=== PATIENT | female | born 1960 | race Caucasian/White ===

== ENCOUNTER 2019-03-28 20:11 | Inpatient (IN) | payer OTHER ==
[~2019-03-28] VITALS: Ht 167.6 cm; Wt 140.6 kg
[~2019-03-28 20:11] MED LIST: SULF1TAB24 PO
--- NOTE | 2019-03-28 20:18 | ED.ADGEN ---
Past History Past Medical History: Anxiety, Arthritis, Depression, GERD, Hypertension, Hypothyroid Adult General Chief Complaint Chief Complaint ".. I just feel bad... all over.. I did fall and hit my knees.. I am so depressed... Just tired... don't want to go on..." HPI HPI Patient is a 58 year old female who presents with above hx and complaints depression. Pt. presents for medical clearance to [facility]. Patient is a transfer from [facility], for admission to senior behavioral health unit. Pt. a resident of [facility] since 12-03-2018. Patient reportedly per staff at [facility] refusing to eat, states she wants to , refusing meds, disoriented, depressed, crying spells daily. No recent changes in meds. Did have an ER visit on 03/24 for suicidal ideation and received antibiotics for a UTI at that time. Patient is normally followed by Dr.Timothy Dickens in [place]. Patient has past medical history of hypothyroidism, major depressive disorder, anxiety, psychophysiological insomnia, carpal tunnel sy ndrome, hypertension, lymphedema, GERD and Nathan's esophagitis, spinal stenosis, gait disorder, chronic renal disease stage III, morbid obesity, and deconditioned. Review of Systems Review of Systems Constitutional: Denies fever or chills [] Eyes: Denies change in visual acuity, redness, or eye pain [] HENT: Denies nasal congestion or sore throat [] Respiratory: Denies cough or shortness of breath [] Cardiovascular: No additional information not addressed in [facility] [] GI: Denies abdominal pain, nausea, vomiting, bloody stools or diarrhea [] : Denies dysuria or hematuria [] Musculoskeletal: Denies back pain or joint pain []. The patient complaints of generalized weakness Integument: Denies rash or skin lesions [] Neurologic: Denies headache, focal weakness or sensory changes [] Endocrine: Denies polyuria or polydipsia [] All other systems were reviewed and found to be within normal limits, except as documented in this note. Family History Family History Noncontributory Current Medications Current Medications See nursing for home meds and allergies Allergies Allergies egg,fish, Physical Exam Physical Exam Constitutional: , no acute distress, non-toxic appearance. [] HENT: Normocephalic, atraumatic, bilateral external ears normal, oropharynx moist, no oral exudates, nose normal. [] Eyes: PERRLA, EOMI, conjunctiva normal, no discharge. [] Neck: Normal range of motion, no tenderness, supple, no stridor. More than 17 inches circumference Cardiovascular:Heart rate regular rhythm, no murmur []. PMI to the left Lungs & Thorax: Bilateral breath sounds equal apexes with some basilar crackles bilaterally on auscultation [] Abdomen: Bowel sounds normal, soft, no tenderness, no masses, no pulsatile masses. Morbid obesity Skin: Warm, dry, no erythema, venous stasis rash in ankles Back: No tenderness, no CVA tenderness. [] Extremities: No tenderness, no cyanosis, no clubbing, moves extremities on request ,edema to mid hernandez edema. [] Arthritic changes. Very weak and required assistance in transfer from wheelchair to bed Neurologic: Alert and oriented X 3, normal motor function, normal sensory function, no focal deficits noted. [] Psychologic: Affect anxious, , mood depressed. Current Patient Data Vital Signs Vital Signs Date Time Temp Pulse Resp B/P (MAP) Pulse Ox O2 Delivery O2 Flow Rate FiO2 03/28/19 20:25 97.8 88 20 97 Room Air EKG EKG My interpretation EKG shows sinus rhythm at 85 bpm. Left word axis. No findings acute STEMI of contralateral changes.[] Radiology/Procedures Radiology/[place] [address] IMAGING REPORT Signed PATIENT: YASMIN MOSQUERA ACCOUNT: [id number] : 1960 LOCATION: ER AGE: 58 SEX: F EXAM STATUS: REG ER ORD. PHYSICIAN: LISA CASH MD REASON: Fall, pelvic pain PROCEDURE: PELVIS Exam: Pelvis radiograph one view INDICATION: Fall TECHNIQUE: Frontal view of the pelvis Comparisons: None FINDINGS: There is diffuse osteopenia. No acute fractures identified. Soft tissues are unremarkable. Joint spaces are well-maintained. IMPRESSION: No acute osseous abnormality is identified. Electronically signed by: Krystin Terrazas MD (03/28/2019 10:21 PM) [facility] DICTATED AND SIGNED BY: KRYSTIN TERRAZAS MD DATE: 03/28/192220 CC: LISA CASH MD; LISA DICKENS ~ [address] [address] IMAGING REPORT Signed PATIENT: YASMIN MOSQUERA ACCOUNT: [id number] : 1960 LOCATION: ER AGE: 58 SEX: F EXAM STATUS: REG ER ORD. PHYSICIAN: LISA CASH MD REASON: Fall, bilateral knee pain PROCEDURE: KNEE BILAT 4V Exam: Bilateral knees 4 views INDICATION: Fall TECHNIQUE: Frontal, lateral and oblique views of the right and left foot. Bilateral sunrise views were also obtained. Comparisons: None FINDINGS: Left knee: Bone mineralization is normal. No acute or healed fractures. Tricompartmental osteoarthritic changes noted at the left knee. Soft tissues are unremarkable. Right knee: Bone mineralization is normal. No acute or healed fractures. Soft tissues are unremarkable. Tricompartmental osteophytic change at the right knee. IMPRESSION: 1. No acute osseous abnormality identified. 2. Tricompartmental osteoarthritic change at the kidneys bilaterally. Electronically signed by: Krystin Terrazas MD (03/28/2019 11:16 PM) [facility] DICTATED AND SIGNED BY: KRYSTIN TERRAZAS MD DATE: 03/28/192315 CC: LISA CASH MD; LISA DICKENS ~ [[address] [address] IMAGING REPORT Signed PATIENT: YASMIN MOSQUERA ACCOUNT: [id number] : 1960 LOCATION: ER AGE: 58 SEX: F EXAM STATUS: REG ER ORD. PHYSICIAN: LISA CASH MD REASON: Fall, left side chest pain PROCEDURE: CHEST AP ONLY Exam: Chest one view INDICATION: Fall TECHNIQUE: Frontal view of the chest Comparisons: None FINDINGS: The cardiomediastinal silhouette and pulmonary vessels are within normal limits. The lung and pleural spaces are clear. IMPRESSION: No acute cardiopulmonary process. Electronically signed by: Krystin Terrazas MD (03/28/2019 11:18 PM) [facility] DICTATED AND SIGNED BY: KRYSTIN TERRAZAS MD DATE: 03/28/19 1084 CC: LISA CASH MD; LISA DICKENS ~ ][place] [address] IMAGING REPORT Signed PATIENT: YASMIN MOSQUERA ACCOUNT: [id number] : 1960 LOCATION: ER AGE: 58 SEX: F EXAM STATUS: REG ER ORD. PHYSICIAN: LISA CASH MD REASON: Fall, hit left side of head, headache, neck pain PROCEDURE: CT HEAD AND CERVICAL SPINE WO Examination: CT head and cervical spine without contrast HISTORY: History of fall, hit head, neck pain COMPARISON: None available CT HEAD COMPARISON: None Available. Exposure: One or more of the following individualized dose reduction techniques were utilized for this examination: 1. Automated exposure control 2. Adjustment of the mA and/or kV according to patient size 3. Use of iterative reconstruction technique TECHNIQUE: 5 mm contiguous axial images were obtained from the skull base to the vertex in both bone and soft tissue algorithm. FINDINGS: No abnormal attenuation within the brain parenchyma. No evidence of acute intracranial hemorrhage. No extra-axial fluid collections. No mass effect or midline shift. Ventricular size is appropriate. Basal cisterns are patent. No fractures identified.Oropeza-white differentiation is preserved.Globes and orbits are within normal limits. Paranasal sinuses and mastoid air cells are clear. IMPRESSION: No acute intracranial findings. CT CERVICAL SPINE COMPARISON: None Available. Technique: 2.5 mm contiguous axial images were obtained from the skull base through the cervicothoracic junction in both bone and soft tissue algorithm. Additional sagittal and coronal reconstructions were also performed. FINDINGS: Vertebral body height and alignment are maintained. Cervical lordosis is preserved. The lateral masses of C1 are aligned upon C2. No fractures identified. The bony canal is patent throughout. Moderate intervertebral disc height loss identified in cervical spine particularly at C4-C5, C5-C6, C6-C7 vertebral levels. The bilateral facets are well aligned. The paraspinous soft tissues are unremarkable. Visualized intracranial contents are unremarkable. Lung apices are clear. IMPRESSION: 1. No acute fracture cervical spine. Correlate clinically. 2. Moderate multilevel degenerative changes cervical spine. Electronically signed by: Landon Alaniz MD (03/28/2019 10:22 PM) [facility] DICTATED AND SIGNED BY: LANDON ALANIZ MD DATE: 03/28/192221 CC: LISA CASH MD; LISA DICKENS ~ Course & Med Decision Making Course & Med Decision Making Pertinent Labs and Imaging studies reviewed. (See chart for details) Pt. admitted to Dr. Rusty ORDOÑEZ, with consult to Dr Moore for medical issues. US of legs pending at time of admit. [] Final Impression Final Impression 1. Mental Status Change[] 2. Depression 3. Suicidal Ideation 4. Elevated BUN / Creat. 23/2.5 5. Morbid Obesity 6. Elevated CK 212 7. Elevated BNP 8. Veinous Stasis 9. Elevated D-dimer 2.11 10.Falling Dragon Disclaimer Dragon Disclaimer This electronic medical record was generated, in whole or in part, using a voice recognition dictation system. Dragon Disclaimer This chart was dictated in whole or in part using Voice Recognition software in a busy, high-work load, and often noisy Emergency Department environment. It may contain unintended and wholly unrecognized errors or omissions. LISA CASH MD Mar 28, 2019 20:18
[2019-03-28] MEDS ORDERED: IV RINGERS SOLUTION,LACTATED 1,000 ML IV SCH (20:32)
--- NOTE | 2019-03-28 21:07 | EKG ---
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
[2019-03-28 21:35] LABS: BASO % 0 % (0-3); EOS % 0 % (0-3); HEMATOCRIT 44.3 % (36.0-47.0); HEMOGLOBIN 14.3 g/dL (12.0-15.5); LYMPH # 1.5 x10^3/uL (1.0-4.8); LYMPH % 16 % (24-48); MEAN CORPUSCULAR HEMOGLOBIN 27 pg (25-35); MEAN CORPUSCULAR HGB CONC 32 g/dL (31-37); MEAN CORPUSCULAR VOLUME 84 fL (79-100); MONO # 0.8 x10^3/uL (0.0-1.1); MONO % 8 % (0-9); NEUT # 7.4 x10^3uL (1.8-7.7); NEUT % 76 % (31-73); PLATELET COUNT 267 x10^3/uL (140-400); RED BLOOD COUNT 5.27 x10^6/uL (3.50-5.40); WHITE BLOOD COUNT 9.7 x10^3/uL (4.0-11.0)
[2019-03-28 21:52] LABS: VAL ACID 88 mcg/mL (50-100)
[2019-03-28] MEDS ORDERED: ACET325T21 PO (21:55)
[2019-03-28] MEDS ORDERED: GABA-586 PO (21:55)
[2019-03-28] MEDS ORDERED: LEVO88TA4 PO (21:55)
[2019-03-28] MEDS ORDERED: BENZ-8 PO (21:55)
[2019-03-28] MEDS ORDERED: CLON0.5T4 PO (21:55)
[2019-03-28] MEDS ORDERED: ARIP5TAB13 PO (21:55)
[2019-03-28] MEDS ORDERED: IPRA3AMP29 NEB (21:55)
[2019-03-28] MEDS ORDERED: GUAI-467 PO (21:55)
[2019-03-28] MEDS ORDERED: FURO40TA4 PO (21:55)
[2019-03-28] MEDS ORDERED: DIVA250T PO (21:55)
[2019-03-28] MEDS ORDERED: POTA10TA5 PO (21:55)
[2019-03-28] MEDS ORDERED: PANT40TA5 PO (21:55)
[2019-03-28] MEDS ORDERED: POLY2500 PO (21:55)
[2019-03-28 21:56] LABS: ALBUMIN 3.7 g/dL (3.4-5.0); CALCIUM 9.5 mg/dL (8.5-10.1); CREATININE 2.5 mg/dL (0.6-1.0); DIRECT BILIRUBIN 0.1 mg/dL (0.0-0.2); GFR 19.7; MAGNESIUM 2.1 mg/dL (1.8-2.4); POTASSIUM 3.9 mmol/L (3.5-5.1); TOTAL BILIRUBIN 0.4 mg/dL (0.2-1.0); TOTAL PROTEIN 8.3 g/dL (6.4-8.2)
--- NOTE | 2019-03-28 22:24 | RAD ---
Exam: Pelvis radiograph one view INDICATION: Fall TECHNIQUE: Frontal view of the pelvis Comparisons: None FINDINGS: There is diffuse osteopenia. No acute fractures identified. Soft tissues are unremarkable. Joint spaces are well-maintained. IMPRESSION: No acute osseous abnormality is identified. Electronically signed by: Krystin Nieto MD (03/28/2019 10:21 PM) [facility]
--- NOTE | 2019-03-28 22:25 | RAD ---
Examination: CT head and cervical spine without contrast HISTORY: History of fall, hit head, neck pain COMPARISON: None available CT HEAD COMPARISON: None Available. Exposure: One or more of the following individualized dose reduction techniques were utilized for this examination: 1. Automated exposure control 2. Adjustment of the mA and/or kV according to patient size 3. Use of iterative reconstruction technique TECHNIQUE: 5 mm contiguous axial images were obtained from the skull base to the vertex in both bone and soft tissue algorithm. FINDINGS: No abnormal attenuation within the brain parenchyma. No evidence of acute intracranial hemorrhage. No extra-axial fluid collections. No mass effect or midline shift. Ventricular size is appropriate. Basal cisterns are patent. No fractures identified.Oropeza-white differentiation is preserved.Globes and orbits are within normal limits. Paranasal sinuses and mastoid air cells are clear. IMPRESSION: No acute intracranial findings. CT CERVICAL SPINE COMPARISON: None Available. Technique: 2.5 mm contiguous axial images were obtained from the skull base through the cervicothoracic junction in both bone and soft tissue algorithm. Additional sagittal and coronal reconstructions were also performed. FINDINGS: Vertebral body height and alignment are maintained. Cervical lordosis is preserved. The lateral masses of C1 are aligned upon C2. No fractures identified. The bony canal is patent throughout. Moderate intervertebral disc height loss identified in cervical spine particularly at C4-C5, C5-C6, C6-C7 vertebral levels. The bilateral facets are well aligned. The paraspinous soft tissues are unremarkable. Visualized intracranial contents are unremarkable. Lung apices are clear. IMPRESSION: 1. No acute fracture cervical spine. Correlate clinically. 2. Moderate multilevel degenerative changes cervical spine. Electronically signed by: Landon Hubbard MD (03/28/2019 10:22 PM) [place] [id number]
[2019-03-28 22:47] LABS: SEDIMENTATION RATE 30 (0-25)
[2019-03-28] MEDS ORDERED: ENOXAPARIN ** NOTE DOSE ** SYRINGE SQ ONE (23:00)
[2019-03-28 23:06] LABS: BARBITURATES NEG (NEG); BENZODIAZEPINES NEG (NEG); CANNABINOIDS NEG (NEG); COCAINE NEG (NEG); METHADONE NEG (NEG); OPIATES NEG (NEG); PHENCYCLIDINE NEG (NEG)
[2019-03-28 23:09] LABS: AMPHETAMINE/METHAMPHETAMINE NEG (NEG)
[2019-03-28 23:12] LABS: BACTERIA,URINE 0 /HPF (0-FEW); BILIRUBIN,URINE NEG (NEG); CLARITY,URINE CLEAR; COLOR,URINE YELLOW; GLUCOSE,URINE NEG (NEG); NITRITE,URINE NEG (NEG); RBC,URINE 0 /HPF (0-2); SQUAMOUS EPITHELIAL CELL,UR FEW /LPF; UROBILINOGEN,URINE 0.2 mg/dL (0.2 mg/dL)
--- NOTE | 2019-03-28 23:19 | RAD ---
Exam: Bilateral knees 4 views INDICATION: Fall TECHNIQUE: Frontal, lateral and oblique views of the right and left foot. Bilateral sunrise views were also obtained. Comparisons: None FINDINGS: Left knee: Bone mineralization is normal. No acute or healed fractures. Tricompartmental osteoarthritic changes noted at the left knee. Soft tissues are unremarkable. Right knee: Bone mineralization is normal. No acute or healed fractures. Soft tissues are unremarkable. Tricompartmental osteophytic change at the right knee. IMPRESSION: 1. No acute osseous abnormality identified. 2. Tricompartmental osteoarthritic change at the kidneys bilaterally. Electronically signed by: Krystin Nieto MD (03/28/2019 11:16 PM) [facility]
--- NOTE | 2019-03-28 23:21 | RAD ---
Exam: Chest one view INDICATION: Fall TECHNIQUE: Frontal view of the chest Comparisons: None FINDINGS: The cardiomediastinal silhouette and pulmonary vessels are within normal limits. The lung and pleural spaces are clear. IMPRESSION: No acute cardiopulmonary process. Electronically signed by: Krystin Nieto MD (03/28/2019 11:18 PM) [facility]
[2019-03-29] MEDS ORDERED: METHYL SALICYLATE/MENTHOL TOPICAL OINTMENT 57GM TUBE. TP PRN
[2019-03-29] MEDS ORDERED: MAGNESIUM HYDROXIDE 2,400 MG/30 ML ORAL.SUSP. PO PRN
[2019-03-29] MEDS ORDERED: MAG HYDROX/AL HYDROX/SIMETH 30 ML ORAL.SUSP PO PRN
[2019-03-29] MEDS ORDERED: guaiFENesin 300 MG/15 ML LIQUID PO PRN (00:15)
[2019-03-29] MEDS ORDERED: ALBUTEROL SULFATE 2.5 MG/3 ML NEBU. NEB PRN ×2 (00:15→11:00)
[2019-03-29] MEDS ORDERED: BENZONATATE 100 MG CAPSULE. PO PRN (00:15)
[2019-03-29 00:53] VITALS: BP 124/98
--- NOTE | 2019-03-29 04:14 | NUR ---
Admission Note with Justification for Admission to [facility] Patient admitted to [facility] for protective oversight for emergency stabilization of acute psychiatric crisis. Pt admitted from: SNF Mode of arrival: EMS Accompanied By: EMS Precipitating behaviors that initiated intake and admission:SI(without plan), refusing to eat, wants to , refusing medication, severely depressed, crying spells daily Description of failure of out patient attempts at stabilization in previous setting list behavior and medication trials: Med changes, ER visits, ABT for UTI Behaviors and assessment findings upon admission: The patient displays a very flat affect, is compliant with her assessment and is appropriate during interactions with this nurse and other staff. The patient was cooperative when asked to rotate in bed and assist in getting dressed. The patient is currently sleeping in her room. Plan: Admit for protective oversight for adjustment and stabilization of medications, behaviors and mood. Intense treatment regimen including groups, medication adjustments, therapy, consistent regimen for ADL's, self care, and sleep hygiene. Daily monitoring by Inpatient staff, Psychiatry, and Medical Physician.
[2019-03-29 05:51] VITALS: BP 123/80
[2019-03-29] MEDS: LEVOTHYROXINE 88 MCG TABLET PO SCH (06:29)
[2019-03-29] MEDS ORDERED: IPRATRPIUM/ALBUTEROL 0.5/2.5MG 3 ML NEBU. NEB SCH (08:00)
[2019-03-29 08:11] LABS: BASO % 1 % (0-3); EOS % 0 % (0-3); HEMATOCRIT 44.9 % (36.0-47.0); HEMOGLOBIN 14.7 g/dL (12.0-15.5); LYMPH # 1.7 x10^3/uL (1.0-4.8); LYMPH % 23 % (24-48); MEAN CORPUSCULAR HEMOGLOBIN 28 pg (25-35); MEAN CORPUSCULAR HGB CONC 33 g/dL (31-37); MEAN CORPUSCULAR VOLUME 84 fL (79-100); MONO # 0.5 x10^3/uL (0.0-1.1); MONO % 7 % (0-9); NEUT # 5.1 x10^3uL (1.8-7.7); NEUT % 70 % (31-73); PLATELET COUNT 257 x10^3/uL (140-400); RED BLOOD COUNT 5.32 x10^6/uL (3.50-5.40); RED CELL DISTRIBUTION WIDTH 16.3 % (11.5-14.5); WHITE BLOOD COUNT 7.4 x10^3/uL (4.0-11.0)
[2019-03-29 08:13] LABS: CALCIUM 9.9 mg/dL (8.5-10.1); CREATININE 2.3 mg/dL (0.6-1.0); GFR 21.7; POTASSIUM 3.4 mmol/L (3.5-5.1)
[2019-03-29] MEDS ORDERED: POLYETHYLENE GLYCOL 3350 17 GM PACKET. PO PRN (09:00)
[2019-03-29] MEDS ORDERED: ASPIRIN 81 MG TAB.CHEW PO ONE (09:00)
[2019-03-29] MEDS ORDERED: ENOXAPARIN ** NOTE DOSE ** SYRINGE SQ SCH (09:00)
[2019-03-29] MEDS: clonazePAM 0.5 MG TABLET PO SCH ×2 (09:25→19:53)
[2019-03-29] MEDS: PANTOPRAZOLE 40 MG TABLET. PO SCH (09:25)
[2019-03-29] MEDS: FUROSEMIDE 40 MG TABLET PO SCH (09:26)
[2019-03-29] MEDS: POTASSIUM CHLORIDE 10 MEQ TABLET.ER. PO SCH ×2 (09:26→19:53)
[2019-03-29] MEDS: DIVALPROEX ER 250 MG TAB.ER.24H. PO SCH ×3 (09:26→19:53)
[2019-03-29] MEDS: ARIPiprazole 5 MG TABLET PO SCH (09:26)
--- NOTE | 2019-03-29 14:15 | NUR ---
NURSING NOTE: PATIENT HAS BEEN CALM AND COOPERATIVE THUS FAR THIS SHIFT. PATIENT HAS FLAT AFFECT AND JUST WANTS TO LAY IN BED ALL DAY. PATIENT WAS UP FOR BREAKFAST AND LUNCH MEAL. PATIENT DID PARTICIPATE IN DAY ROOM ACTIVITIES BETWEEN MORNING MEALS. PATIENT IS NOW IN BED AFTER DOPPLER TESTING WITH RADIOLOGY. TOOK MEDICATIONS WHOLE WITHOUT DIFFICULTIES.
--- NOTE | 2019-03-29 14:42 | NUR ---
Call placed to Yoana at [employer] ([phone]) to inform that Talia was admitted on 03/28/19 for treatment of MDD. Call reference number is Yoana Gallo 03/29/19 2:40pm. Pending authorization is [id number]. Per request, faxed intake record for review. Clinicals will need to be faxed into [phone] on 03/30/19.
[2019-03-29] MEDS ORDERED: clonazePAM 0.5 MG TABLET PO PRN (15:00)
[2019-03-29] MEDS ORDERED: ACET325T21 PO (15:01)
[2019-03-29] MEDS ORDERED: CLON0.5T4 PO (15:01)
[2019-03-29] MEDS: ACETAMINOPHEN 325 MG TABLET PO PRN (15:29)
--- NOTE | 2019-03-29 15:30 | NUR ---
SW and SW internet manager met with pt to complete PSA; in which only part of the assessment was completed. The full PSA will be added into the system once completed.
--- NOTE | 2019-03-29 15:32 | RAD ---
Bilateral lower extremity venous duplex study 03/29/2019 7:00 AM Clinical History: Lower extremity pain. Recent fall. Comparison: None Technique: Using a combination of real time ultrasound imaging and color-flow and pulse Doppler imaging techniques along with graded compression and augmentation, duplex evaluation of the deep venous system of the both lower extremities was performed. Multiple images were obtained. Findings: There is no sonographic evidence of deep venous thrombosis involving the visualized deep venous structures of either lower extremity. Bilateral popliteal cysts noted. Impression: No evidence of deep venous thrombosis involving either lower extremity Electronically signed by: Kevin Collins MD (03/29/2019 3:29 PM) [facility]
[2019-03-29 16:03] VITALS: BP 115/68
--- NOTE | 2019-03-29 18:06 | NUR ---
NURSING NOTES: PATIENT NOTED TO BE SHAKING THIS EVENING. WHEN ASKED WHAT IS CAUSING HER TO SHAKE SHE STATES SHE DOES NOT KNOW AND HAS NO CONTROL OF IT. DR. ZAKIYA ROSA.
[2019-03-29 19:07] LABS: THYROXINE 11.8 ug/dL (4.5-12.0)
[2019-03-29] MEDS: ACETAMINOPHEN 325 MG TABLET PO SCH (19:54)
[2019-03-29] MEDS: SMZ/TMP 800/160MG TABLET. PO SCH (19:54)
[2019-03-29] MEDS: GABAPENTIN 300 MG CAPSULE. PO SCH (19:54)
--- NOTE | 2019-03-29 20:36 | PDOC ---
Exam Note: Jamal Note: Please also refer to the separate dictated note~for this date of service dictated separately. Discussed the patient with Nursing staff reviewed the chart.~Reviewed interim history and current functioning. Reviewed vital signs,~Labs/ Radiology~and current medications noted below. Continue current treatment with the changes noted in the dictated addendum note Assessment: Vital Signs/I&O: Vital Signs Date Time Temp Pulse Resp B/P (MAP) Pulse Ox O2 Delivery O2 Flow Rate FiO2 03/29/19 16:03 97.0 88 16 115/68 (84) 96 03/28/19 23:33 Room Air Labs: Laboratory Tests Test 03/28/19 21:10 03/28/19 22:38 03/29/19 06:52 White Blood Count 9.7 x10^3/uL (4.0-11.0) 7.4 x10^3/uL (4.0-11.0) Red Blood Count 5.27 x10^6/uL (3.50-5.40) 5.32 x10^6/uL (3.50-5.40) Hemoglobin 14.3 g/dL (12.0-15.5) 14.7 g/dL (12.0-15.5) Hematocrit 44.3 % (36.0-47.0) 44.9 % (36.0-47.0) Mean Corpuscular Volume 84 fL (79-100) 84 fL (79-100) Mean Corpuscular Hemoglobin 27 pg (25-35) 28 pg (25-35) Mean Corpuscular Hemoglobin Concent 32 g/dL (31-37) 33 g/dL (31-37) Red Cell Distribution Width 16.0 % (11.5-14.5) H 16.3 % (11.5-14.5) H Platelet Count 267 x10^3/uL (140-400) 257 x10^3/uL (140-400) Neutrophils (%) (Auto) 76 % (31-73) H 70 % (31-73) Lymphocytes (%) (Auto) 16 % (24-48) L 23 % (24-48) L Monocytes (%) (Auto) 8 % (0-9) 7 % (0-9) Eosinophils (%) (Auto) 0 % (0-3) 0 % (0-3) Basophils (%) (Auto) 0 % (0-3) 1 % (0-3) Neutrophils # (Auto) 7.4 x10^3uL (1.8-7.7) 5.1 x10^3uL (1.8-7.7) Lymphocytes # (Auto) 1.5 x10^3/uL (1.0-4.8) 1.7 x10^3/uL (1.0-4.8) Monocytes # (Auto) 0.8 x10^3/uL (0.0-1.1) 0.5 x10^3/uL (0.0-1.1) Eosinophils # (Auto) 0.0 x10^3/uL (0.0-0.7) 0.0 x10^3/uL (0.0-0.7) Basophils # (Auto) 0.0 x10^3/uL (0.0-0.2) 0.0 x10^3/uL (0.0-0.2) Erythrocyte Sedimentation Rate 30 (0-25) H Prothrombin Time 10.8 SEC (9.4-11.4) Prothrombin Time INR 1.0 (0.9-1.1) Activated Partial Thromboplast Time 26 SEC (23-33) D-Dimer (Lupe) 2.11 mg/L (0.00-0.50) H Sodium Level 141 mmol/L (136-145) 143 mmol/L (136-145) Potassium Level 3.9 mmol/L (3.5-5.1) 3.4 mmol/L (3.5-5.1) L Chloride Level 101 mmol/L (98-107) 102 mmol/L (98-107) Carbon Dioxide Level 28 mmol/L (21-32) 27 mmol/L (21-32) Anion Gap 12 (6-14) 14 (6-14) Blood Urea Nitrogen 23 mg/dL (7-20) H 22 mg/dL (7-20) H Creatinine 2.5 mg/dL (0.6-1.0) H 2.3 mg/dL (0.6-1.0) H Estimated GFR (Cockcroft-Gault) 19.7 21.7 Glucose Level 98 mg/dL (70-99) 71 mg/dL (70-99) Calcium Level 9.5 mg/dL (8.5-10.1) 9.9 mg/dL (8.5-10.1) Magnesium Level 2.1 mg/dL (1.8-2.4) Iron Level 32 ug/dL (50-170) L Total Iron Binding Capacity 330 ug/dL (250-450) Iron Saturation 10 % (15-34) L Total Bilirubin 0.4 mg/dL (0.2-1.0) Direct Bilirubin 0.1 mg/dL (0.0-0.2) Aspartate Amino Transferase (AST) 17 U/L (15-37) Alanine Aminotransferase (ALT) 7 U/L (14-59) L Alkaline Phosphatase 83 U/L (46-116) Creatine Kinase 212 U/L (26-192) H Troponin I Quantitative < 0.017 ng/mL (0-0.055) QM-Byk-R-Type Natriuretic Peptide 473 pg/mL (0-124) H Total Protein 8.3 g/dL (6.4-8.2) H Albumin 3.7 g/dL (3.4-5.0) Triglycerides Level 149 mg/dL (0-150) Cholesterol Level 141 mg/dL (0-200) LDL Cholesterol, Calculated 75 mg/dL (0-100) VLDL Cholesterol, Calculated 29 mg/dL (0-40) Non-HDL Cholesterol Calculated 104 mg/dL (0-129) HDL Cholesterol 37 mg/dL (40-60) L Cholesterol/HDL Ratio 3.0 Lipase 102 U/L (73-393) Vitamin B12 Level 729 pg/mL (247-911) 25-Hydroxy Vitamin D Total 25.5 ng/mL (30-100) L Thyroid Stimulating Hormone (TSH) 0.142 uIU/mL (0.358-3.740) Thyroxine (T4) 11.8 ug/dL (4.5-12.0) Total Triiodothyronine (TT3) 77 ng/dL (71-180) Valproic Acid Level 88 mcg/mL (50-100) Valproic Acid Last Dose Date Unknown Valproic Acid Last Dose Time Unknown Treponema pallidum Antibody Nonreactive (Nonreactive) Urine Collection Type U cath Urine Color Yellow Urine Clarity Clear Urine pH 5.5 Urine Specific [place] 1.020 Urine Protein Neg (NEG-TRACE) Urine Glucose (UA) Neg mg/dL (NEG) Urine Ketones (Stick) Neg mg/dL (NEG) Urine Blood Neg (NEG) Urine Nitrite Neg (NEG) Urine Bilirubin Neg (NEG) Urine Urobilinogen Dipstick 0.2 mg/dL (0.2 mg/dL) Urine Leukocyte Esterase Trace (NEG) Urine RBC 0 /HPF (0-2) Urine WBC 1-4 /HPF (0-4) Urine Squamous Epithelial Cells Few /LPF Urine Transitional Epithelial Cells Many /LPF Urine Bacteria 0 /HPF (0-FEW) Urine Opiates Screen Neg (NEG) Urine Methadone Screen Neg (NEG) Urine Barbiturates Neg (NEG) Urine Phencyclidine Screen Neg (NEG) Urine Amphetamine/Methamphetamine Neg (NEG) Urine Benzodiazepines Screen Neg (NEG) Urine Cocaine Screen Neg (NEG) Urine Cannabinoids Screen Neg (NEG) Urine Ethyl Alcohol Neg (NEG) Current Medications: Meds: Current Medications Medications (Trade) Dose Ordered Sig/Radha Route PRN Reason Start Time Stop Time Status Last Admin Dose Admin Enoxaparin Sodium (Lovenox 120mg Syringe) 120 mg 1X ONCE SQ 03/28/19 23:00 03/29/19 18:27 DC 03/28/19 23:34 Enoxaparin Sodium (Lovenox 120mg Syringe) 120 mg BID SQ 03/29/19 09:00 03/29/19 18:27 DC 03/29/19 09:25 Aspirin (Children'S Aspirin) 81 mg DAILY ONCE PO 03/29/19 09:00 03/29/19 09:01 DC 03/29/19 09:26 Acetaminophen (Tylenol) 650 mg PRN Q4HRS PRN PO PAIN / TEMP 03/29/19 00:15 03/29/19 15:29 Furosemide (Lasix) 40 mg DAILY PO 03/29/19 09:00 03/29/19 09:26 Gabapentin (Neurontin) 300 mg HS PO 03/29/19 21:00 03/29/19 19:54 Levothyroxine Sodium (Synthroid) 88 mcg DAILY06 PO 03/29/19 06:00 03/29/19 06:29 Pantoprazole Sodium (Protonix) 40 mg DAILYAC PO 03/29/19 07:30 03/29/19 09:25 Potassium Chloride (Klor-Con) 10 meq BID PO 03/29/19 09:00 03/29/19 19:53 Aripiprazole (Abilify) 5 mg DAILY PO 03/29/19 09:00 03/29/19 09:26 Clonazepam (KlonoPIN) 0.5 mg BID PO 03/29/19 09:00 03/29/19 19:53 Divalproex Sodium (Depakote Er) 250 mg TID PO 03/29/19 09:00 03/29/19 19:53 Acetaminophen (Tylenol) 650 mg BID PO 03/29/19 21:00 03/29/19 19:54 Trimethoprim/ Sulfamethoxazole (Bactrim Ds) 1 tab BID PO 03/29/19 21:00 03/31/19 09:01 03/29/19 19:54 I have reviewed the current psychotropics carefully including drug interactions. Risk benefit ratio favors no change other than as noted in my dictated progress note. Diagnosis: Problems: (1) Anxiety disorder (2) Mild cognitive disorder (3) Major depressive disorder, recurrent episode (4) Impulse control disorder PAIGE CAMARA MD Mar 29, 2019 20:36
--- NOTE | 2019-03-29 23:21 | CONS ---
DATE OF CONSULTATION: REASON FOR CONSULTATION: Medical management. HISTORY OF PRESENT ILLNESS: The patient is a 58-year-old female patient, a resident at [facility], who apparently self-signed herself on account of suicidal ideation without a plan, refusing to eat, refusing medication wants to , severely depressed with daily crying spells, all this in a background of major depressive disorder. PAST MEDICAL HISTORY: Significant for hypothyroidism, carpal tunnel, hypertension, lymphedema, gastroesophageal reflux disease, Nathan's esophagus, spinal stenosis, chronic kidney disease stage 3, and morbid obesity. PAST SURGICAL HISTORY: Significant for 2 C-sections, tubal ligation. ALLERGIES: She is allergic to EGG AND FISH DERIVED PRODUCTS. MEDICATIONS: She is on sulfamethoxazole/trimethoprim 1 tablet twice a day for UTI, ipratropium bromide, albuterol sulfate by nebulizer every 4 hours, Tylenol 650 mg every 4 hours, acetaminophen 650 mg twice a day, clonazepam 0.5 mg twice a day, divalproex sodium 250 mg 3 times a day, gabapentin 300 mg at bedtime, aripiprazole or Abilify 5 mg once a day, potassium chloride 10 mEq twice a day, furosemide 40 mg daily, benzonatate 100 mg as needed every 6 hours, guaifenesin 100 mg/10 mL every 4 hours, Protonix, sodium 40 mg daily, levothyroxine sodium 88 mcg once a day, polyethylene glycol 17 grams daily. FAMILY HISTORY: Noncontributory. SOCIAL HISTORY: She apparently used to live alone, but now lives at [facility]. She has a son and a daughter. She does not smoke, drink alcohol or use any recreational drugs. REVIEW OF SYSTEMS: As in history of present illness. PHYSICAL EXAMINATION GENERAL: When I examined her, she was sitting in her wheelchair comfortably, in no apparent distress. No pallor, jaundice, cyanosis or thyromegaly. No jugular venous distension. No lower limb edema. VITAL SIGNS: Her heart rate was 88, blood pressure 115/68, temperature was 97, respiratory rate was 16, and oxygen saturation was 96%. HEAD, EYES, EARS, NOSE AND THROAT: Showed normocephalic, atraumatic. NECK: Supple. HEART: Normal first and second heart sounds. No gallop, rub or murmur. CHEST: Clear to auscultation. No crepitation or rhonchi. ABDOMEN: Distended, soft, nontender. NEUROLOGIC: She is awake, alert, responding appropriately. All cranial nerves intact. EXTREMITIES: She moves extremities without difficulty. She was in her wheelchair, but claims that she sometimes able to walk with a walker. LABORATORY DATA: Showed a white cell count 7400, hemoglobin 14.7, hematocrit 44.9, MCV 84 and platelet count 257,000. Her serum sodium was 143, potassium 3.4, chloride 102, bicarbonate 27, anion gap of 14, BUN 22, creatinine 2.3, estimated GFR was 21 mL per minute. Her glucose 71, calcium was 9.9. Her prothrombin time was 10.8, INR 1, aPTT was 26. D-dimer was 2.11. Urinalysis was essentially unremarkable and toxic screen was essentially negative. Her valproic acid is 88 mcg/mL, which is well within therapeutic range. She apparently fell and was extensively investigated in the Emergency Room, had an x-ray of her pelvis, which showed there is diffuse osteopenia, no acute fracture identified. Soft tissues unremarkable. Joint spaces are well maintained. She has bilateral knee x-rays, showed no acute osseous abnormality identified. Tricompartmental osteoarthritic changes at both knees bilaterally. CT scan of the head showed no acute intracranial finding. There is no acute fracture of cervical spine, moderate multilevel degenerative changes of cervical spine. Her chest x-ray showed the cardiomediastinal silhouette and pulmonary vessels are within normal limits and the ultrasound of both lower extremities showed no sonographic evidence of deep vein thrombosis involving the visualized deep venous structures of either lower extremity, bilateral popliteal cysts noted. ASSESSMENT AND PLAN: In summary, this is a 58-year-old female patient, who was admitted on account of suicidal ideation without a plan, refusing to eat, refusing medication, wants to , severely depressed with daily crying spells, all this in a background of major depressive disorder. She is known to have hypothyroidism, carpal tunnel, hypertension, lymphedema, gastroesophageal reflux disease, Nathan's esophagus, spinal stenosis and stage 3 kidney disease and morbid obesity. All in all, she seemed to be medically stable, I do not see any reason why she should be continued on this. The patient denied any cough or phlegm. Denied any hemoptysis. Denied any chest pain. I will probably discontinue the Lovenox as I do not think she would be able to be even in V/Q scan. Otherwise, all other lab works are stable and that showed the Bactrim would be the best option available for treating her urinary tract infection, although her urinalysis was essentially unremarkable. Thank you, Dr. Ojeda for allowing me to participate in the care of this patient. MARLENE SIGALA MD DR: DAYO/david JOB#: [id number] / [id number]
--- NOTE | 2019-03-30 00:17 | NUR ---
Nursing Note The patient was calm and cooperative with her medication and assessment. The patient took her medication whole. The patient has a very flat affect. The patient is currently sleeping in her room.
[2019-03-30] MEDS: LEVOTHYROXINE 88 MCG TABLET PO SCH (05:50)
[2019-03-30 05:56] VITALS: BP 104/62
[2019-03-30] MEDS: DIVALPROEX ER 250 MG TAB.ER.24H. PO SCH ×2 (08:33→20:15)
[2019-03-30] MEDS: ARIPiprazole 5 MG TABLET PO SCH (08:33)
[2019-03-30] MEDS: SMZ/TMP 800/160MG TABLET. PO SCH ×2 (08:33→20:15)
[2019-03-30] MEDS: POTASSIUM CHLORIDE 10 MEQ TABLET.ER. PO SCH (08:33)
[2019-03-30] MEDS: PANTOPRAZOLE 40 MG TABLET. PO SCH (08:33)
[2019-03-30] MEDS: ACETAMINOPHEN 325 MG TABLET PO SCH ×2 (08:34→20:16)
[2019-03-30] MEDS: clonazePAM 0.5 MG TABLET PO SCH ×2 (08:37→20:16)
[2019-03-30] MEDS: FUROSEMIDE 40 MG TABLET PO SCH (09:00)
--- NOTE | 2019-03-30 12:01 | PN ---
DATE: 03/30/2019 PSYCHIATRIC PROGRESS NOTE This note covers elements not covered in my initial note of 03/30. SUBJECTIVE: The patient was staffed at a treatment team meeting with the entire team and seen individually. She remains depressed, anxious, labile, has some tremors. Some of this could be contributed by the Depakote, which we will change to the bedtime. She has been having crying spells, believes she is being targeted by staff and does not like the way staff interacts with other patients on the unit. Addressed this with her. REVIEW OF SYSTEMS: Ambulation impaired. No CV, , pulmonary, eye system symptoms on review. She was in a wheelchair. MENTAL STATUS EXAM: Oriented reasonably. Speech is coherent, abstraction fair, computation impaired, language function intact, attention span short. Mood and affect still depressed, withdrawn. LABORATORY DATA: Reviewed. IMPRESSION: Major depressive disorder, recurrent, severe with possible psychotic features; anxiety disorder, unspecified; borderline personality disorder. PLAN: Continue Depakote, Abilify, Klonopin at current dosage. Start Luvox 25 mg at bedtime for 3 days, then 50 mg at bedtime thereafter for her mood, anxiety, obsessive symptoms. We will make further adjustments as clinically indicated. PAIGE CAMARA MD DR: SAM/david JOB#: [id number] / [id number]
--- NOTE | 2019-03-30 12:14 | HP ---
ADMIT DATE: 03/29/2019 This late entry 03/29 covers elements not covered in my initial note. I met with the patient at length the evening of 03/29 and discussed with Elise Molina, environment coordinator, on 03/28 and with nursing staff on 03/29. IDENTIFYING DATA: The patient is a 58-year-old female referred to us from [facility] by Dr. Rivas Dickens, her primary care physician on account of worsening symptoms of depression, feeling hopeless, helpless, worthless with suicidal ideation without a plan. She was refusing to eat, refusing medications, wanting to , severely depressed with daily crying spells. She does have a history of major depressive disorder, possible borderline personality disorder, had been functioning reasonably well until recently. CHIEF COMPLAINT: "Nothing is working out. I am depressed." HISTORY OF PRESENT ILLNESS: The patient has a history of major depressive disorder. She has been inpatient at [facility] in [place] in the past. More recently, she has been living at the assisted living, progressively deteriorating, feeling hopeless, helpless, worthless, overwhelmed with minor things having significant crying spells, sleep and appetite changes, refusing to eat, with suicidal ideation. She has appeared paranoid as well. No clear history of bipolar disorder. PAST PSYCHIATRIC HISTORY: As above. PAST MEDICAL HISTORY: Thyroid atrophy, hypothyroidism, carpal tunnel syndrome, hypertension, lymphedema, GERD, Nathan's esophagus, spinal stenosis, chronic kidney disease stage 3, obesity. Ambulates with walker/at times wheelchair, which is how she was when I met with her the evening of 03/29. CURRENT PSYCHOTROPICS: Abilify 5 mg a day, Klonopin 0.5 mg b.i.d. plus 0.5 mg b.i.d. p.r.n. anxiety. Neurontin 300 mg at bedtime, Depakote ER 250 mg t.i.d. with a level therapeutic at 88. FAMILY HISTORY: Noncontributory. SOCIAL HISTORY: No alcohol, drug abuse, physical, sexual or elder abuse history is noted. Not known to be a perpetrator. REACTION TO HOSPITALIZATION: The patient accepting of it. ASSETS: Supportive living at the facility. MENTAL STATUS EXAMINATION: The patient seen individually evening of 03/29. She is in a wheelchair, crying profusely, anxious, restless, totally overwhelmed with circumstances around her. Unable to explain to me. She states she feels "terrible." She was tearful, labile. Denies active homicidal ideation. Denies active suicidal ideation to hurt herself. Attention span short. Language function intact. IMPRESSION: Major depressive disorder ____; anxiety disorder, unspecified; borderline personality disorder; rule out bipolar disorder, depressed. Rest as above. PLAN: Admit to Geropsychiatry Unit at [facility]. I will see the patient daily individually from a psychiatric standpoint. Medical followup with Dr. Moore. Continue the patient on her current psychotropics. May change the Depakote ER to at bedtime for the entire dosage. Maintain the dosage unchanged since level is therapeutic. Continue Klonopin, gabapentin, Abilify for now. She is quite obsessive, anxious, depressed. We may start Luvox, but we will do this after another few hours of baseline assessment. We will make further decisions depending on her progress initially. Estimated length of stay 7-9 days with transition back to assisted living at discharge. MAN All CAMARA MD DR: SAM/david JOB#: [id number] / [id number]
--- NOTE | 2019-03-30 15:39 | NUR ---
CONCHITA received fax from [facility] and received approval for pt until 04/03. CONCHITA will send updates as requested for concurrent review on Wednesday.
--- NOTE | 2019-03-30 16:00 | NUR ---
PSYCHOSOCIAL ASSESSMENT ADMISSION DATE: 03/28/19 CONTACT INFORMATION: DPOA/Guardian Contact Name: Pt is a self-sign Contact Address: [address] [place] [address]; [place], [place] Contact Phone #: ETHNIC ORIGIN: REASONS FOR ADMISSION: Depressed Sig. Change Appetite Suicidal ideation Other ADDITIONAL ADMISSION COMMENTS: According to the intake, pt is having SI without a plan. Pt is refusing to eat, wants to , refusing medications, severely depressed, crying spells daily. REASON FOR ADMISSION IN PATIENT/FAMILY'S OWN WORDS: Pt has just been feeling really down lately. PATIENT/FAMILY EXPECTATIONS FOR ADMISSION: Pt wants to have her medications checked out. LIVING SITUATION: Patient lives with: Assisted Living Other living arrangements: Contact Name: Meliza Rodriguez Living Contact Address: [address] [place] [address], [place] [address] Contact Phone #: Contact Fax #: FAMILY RELATIONS: Marital Status: # of Marriages: 1 # of Children: 2 [facility] Family Support: Concerned Involved in [place] Planning Additional Comments r/t Family: Pt was to her only from [id number]. She reports that they shouldn't have but did. Together the 2 have 1 girl and 1 boy. Pt son has disowned his mother as she reports that she and her dtr are co-dependent and it is a toxic relationship. SIGNIFICANT PSYCHIATRIC/MEDICAL HISTORY: Psychiatric/Treatment History: This is pt first admission to [facility]. Pt has a hx of MDD, Borderline Personality D/O, Anxiety D/O,and insomnia. Pertinent Family History: HISTORICAL DATA: Childhood Environment: Stressful Other-see below Childhood Environment Additional Comments: Pt reports that she is 1 of 7 children. She is the baby and stated that her childhood was very stressful. Pt mainly talks to one sister who lives in [place]. Pt other siblings are spread through the states and has little to no contact with them. Psychological Abuse: None Additional Comments: Drug Abuse History last 12 months: No Comment: PERSONAL HISTORY: Vocational history: Pt reports that she worked in [employer] most of her life. Her last gig was at [employer]. service: N Taoism background: No preference. Sexual orientation: Heterosexual Educational Level: Pt graduated High School (12th grade) Past/Present Interests/Hobbies: anything that puts her around people. Financial support/resources: SS Disability Monthly income: Person handling finances: Pt finances go to her correction. Do you have a history of legal problems: N Cultural considerations: None SOCIAL RELATIONSHIPS-CURRENT/PAST: Psychiatrist: Dr. Jett (did psych eval) PCP: Rivas Dickens Counselor/Therapist: Emy Burr ([facility]) [facility]: Support Group: Pipeline Superintendent/Recruitment Coordinator: Other relationships: STRENGTHS & WEAKNESSES: Patient's strengths: Good verbal skills Approachable Other patient strengths: Patient's weaknesses: Poor family support Poor relationships Education level Other patient weaknesses: PRELIMINARY PLAN OF TREATMENT: Preliminary plan: Symp. Depression Promote Coping Skill Medication Stabilization Monitor Med Effects Other preliminary treatment comments: DISCHARGE PLANNING: Discharge planning/disposition: Current Living Arrange. Additional discharge needs identified: Pt will plan to return to [facility] ADDITIONAL INFORMATION: Other Pertinent Data: SW public relations intern and SW met with pt to complete psycho-social. Pt was in bed at requested to be re-adjusted at the beginning of the assessment. Pt reported to the SW public relations intern that she doesn't understand why nothing here works. Pt reports that she has always been depressed all of her life. Pt also reports that she does not feel staff is checking in on her or helping her as she needs it. SW explained that pt really needed to be out of her room as much as possible. SW understands that pain is an issue, but if that can be worked out, laying in bed is not okay. Pt asked to see if she could get a number for [facility]; she believes that her sister would know and asked us to call her for that number. SW will continue to follow up with pt and discuss further discharge plans.
[2019-03-30 16:40] VITALS: BP 104/68
[2019-03-30] MEDS: CHOLECALCIFEROL (VITAMIN D3) 50,000 UNIT CAPSULE PO SCH (20:15)
[2019-03-30] MEDS: POTASSIUM CHLORIDE 20 MEQ TABLET.ER. PO SCH (20:16)
[2019-03-30] MEDS: GABAPENTIN 300 MG CAPSULE. PO SCH (20:16)
--- NOTE | 2019-03-30 20:37 | PDOC ---
Exam Note: Jamal Note: Please also refer to the separate dictated note~for this date of service dictated separately.~Patient seen individually. Discussed the patient with Nursing staff reviewed the chart.~Reviewed interim history and current functioning. Reviewed vital signs,~Labs/ Radiology~and current medications noted below. Continue current treatment with the changes noted in the dictated addendum note Assessment: Vital Signs/I&O: Vital Signs Date Time Temp Pulse Resp B/P (MAP) Pulse Ox O2 Delivery O2 Flow Rate FiO2 03/30/19 16:40 97.3 67 19 104/68 (80) 97 03/30/19 05:56 Room Air I & O 03/29/19 03/29/19 03/30/19 15:00 23:00 07:00 Intake Total 600 ml 360 ml 240 ml Balance 600 ml 360 ml 240 ml Current Medications: Meds: Current Medications Medications (Trade) Dose Ordered Sig/Radha Route PRN Reason Start Time Stop Time Status Last Admin Dose Admin Gabapentin (Neurontin) 300 mg HS PO 03/29/19 21:00 03/30/19 20:16 Acetaminophen (Tylenol) 650 mg BID PO 03/29/19 21:00 03/30/19 20:16 Trimethoprim/ Sulfamethoxazole (Bactrim Ds) 1 tab BID PO 03/29/19 21:00 03/31/19 09:01 03/30/19 20:15 Divalproex Sodium (Depakote Er) 750 mg QHS PO 03/30/19 21:00 03/30/19 20:15 Potassium Chloride (Klor-Con) 20 meq BID PO 03/30/19 21:00 03/30/19 20:16 Vitamin D (Vitamin D3) 50,000 unit WEEKLY PO 03/30/19 18:30 03/30/19 20:15 I have reviewed the current psychotropics carefully including drug interactions. Risk benefit ratio favors no change other than as noted in my dictated progress note. Diagnosis: Problems: (1) Mental status change resolved (2) Anxiety disorder (3) Mild cognitive disorder (4) Major depressive disorder, recurrent episode (5) Impulse control disorder PAIGE CAMARA MD Mar 30, 2019 20:37
--- NOTE | 2019-03-30 23:19 | NUR ---
Nursing note: Assumed care of pt in the day room. She was calm and cooperative, no c/o pain, no agitation. Admits to depression but denies Si\ Addendum: 03/30/19 at 2321 by HERMAN AGEE RN denies SI plan. No hallucinations or delusions present.
[2019-03-31] MEDS: LEVOTHYROXINE 88 MCG TABLET PO SCH (06:23)
[2019-03-31 06:36] VITALS: BP 109/73
[2019-03-31] MEDS: clonazePAM 0.5 MG TABLET PO SCH ×2 (08:57→19:49)
[2019-03-31] MEDS: ARIPiprazole 5 MG TABLET PO SCH (08:58)
[2019-03-31] MEDS: SMZ/TMP 800/160MG TABLET. PO SCH (08:58)
[2019-03-31] MEDS: FUROSEMIDE 40 MG TABLET PO SCH (08:58)
[2019-03-31] MEDS: PANTOPRAZOLE 40 MG TABLET. PO SCH (08:58)
[2019-03-31] MEDS: POTASSIUM CHLORIDE 20 MEQ TABLET.ER. PO SCH ×2 (08:58→19:49)
[2019-03-31] MEDS: ACETAMINOPHEN 325 MG TABLET PO SCH ×2 (08:58→19:49)
--- NOTE | 2019-03-31 12:20 | NUR ---
CONCHITA contacted Shubham, the campus administrator at [facility] to discuss pt behaviors prior to admission. Pt came to them 3 months ago and reports that she was very happy when she came in as she was in a worse placement prior to. Shubham reports that pt did well until this last month. She was very tearful, random crying and in the moments that she had the tremors and was taken to the hospital, she was always sent back with no concerns. Shubham reports that she has a neurology appointment but it is not scheduled until the beginning of next year. CONCHITA will see if pt would be able to get a neurology consult. Shubham did report that the family dynamic is not strong. Pt is consistently attempting to give pt dtr money in which pt son is furious about and has put distance between them. Shubham also informed pt that she cannot be giving her dtr money. Once placement is paid for she only receives $70 per month.
--- NOTE | 2019-03-31 14:13 | NUR ---
Pt has had multiple episodes of tearfulness throughout the day. Pt A/O to name, ; unable to state where she is at and what the date is. Pt withdrawn; sits in the dayroom but does not participate in groups. Pt somatic and helpless, stating that she cannot propel herself in her wheelchair. Compliant with whole medications.
[2019-03-31 15:59] VITALS: BP 122/90
[2019-03-31] MEDS: DIVALPROEX ER 250 MG TAB.ER.24H. PO SCH (19:48)
[2019-03-31] MEDS: GABAPENTIN 300 MG CAPSULE. PO SCH (19:49)
--- NOTE | 2019-03-31 20:51 | PDOC ---
Exam Note: Jamal Note: Please also refer to the separate dictated note~for this date of service dictated separately.~Patient seen individually. Discussed the patient with Nursing staff reviewed the chart.~Reviewed interim history and current functioning. Reviewed vital signs,~Labs/ Radiology~and current medications noted below. Continue current treatment with the changes noted in the dictated addendum note Assessment: Vital Signs/I&O: Vital Signs Date Time Temp Pulse Resp B/P (MAP) Pulse Ox O2 Delivery O2 Flow Rate FiO2 03/31/19 15:59 97.8 76 18 122/90 (101) 87 03/30/19 05:56 Room Air I & O 03/30/19 03/30/19 03/31/19 15:00 23:00 07:00 Intake Total 960 ml 480 ml 240 ml Balance 960 ml 480 ml 240 ml Current Medications: Meds: Current Medications Medications (Trade) Dose Ordered Sig/Radha Route PRN Reason Start Time Stop Time Status Last Admin Dose Admin Divalproex Sodium (Depakote Er) 750 mg QHS PO 03/30/19 21:00 03/31/19 19:48 Fluvoxamine Maleate (Luvox) 25 mg DAILY PO 03/31/19 09:00 04/02/19 09:01 03/31/19 08:57 Potassium Chloride (Klor-Con) 20 meq BID PO 03/30/19 21:00 03/31/19 19:49 I have reviewed the current psychotropics carefully including drug interactions. Risk benefit ratio favors no change other than as noted in my dictated progress note. Diagnosis: Problems: (1) Anxiety disorder (2) Mild cognitive disorder (3) Major depressive disorder, recurrent episode (4) Impulse control disorder PAIGE CAMARA MD Mar 31, 2019 20:51
--- NOTE | 2019-03-31 22:05 | NUR ---
Nursing note: Assumed care of pt in the day room. She was A&OX3, compliant but withdrawn. Pt taken to shower and needed very little help. She had no c/o pain.
[2019-04-01 05:14] VITALS: BP 101/68
[2019-04-01] MEDS: LEVOTHYROXINE 88 MCG TABLET PO SCH (05:34)
[2019-04-01] MEDS: PANTOPRAZOLE 40 MG TABLET. PO SCH (08:27)
[2019-04-01] MEDS: FUROSEMIDE 40 MG TABLET PO SCH (08:27)
[2019-04-01] MEDS: POTASSIUM CHLORIDE 20 MEQ TABLET.ER. PO SCH ×2 (08:27→20:15)
[2019-04-01] MEDS: ACETAMINOPHEN 325 MG TABLET PO SCH ×2 (08:27→20:15)
[2019-04-01] MEDS: QUEtiapine 25 MG TABLET. PO SCH ×2 (08:29→13:17)
[2019-04-01] MEDS: clonazePAM 0.5 MG TABLET PO SCH ×2 (08:29→20:17)
--- NOTE | 2019-04-01 09:47 | NUR ---
Nursing note: Assumed care of patient in the dining room. Patient was compliant but withdrawn to self. Patient is A/Ox3. Denies SI and depression. No c/o pain, no agitation, no hallucinations.
--- NOTE | 2019-04-01 15:42 | NUR ---
Activity Therapy Assessment Completed based on observation, notes, and interview. Pt. accepted hand massages from therapist this morning. Pt. stated she is from [place] and many of her siblings live close by. Pt. stated she does not see her family or children often. When asked about interests, Pt. stated that everything she likes to do is too expensive and she doesn't have any money so she doesn't do anything. Pt. grew tired during the session and retreated to her room to sleep. Pt. uses a wheelchair to ambulate and often has a flat affect. Pt. is around groups at times and engages every so often but tends to mostly sleep. Pt. has bouts of tearfulness as well but is generally easy to calm and redirect. Pt. can express herself clearly and her memory seems fairly intact. Initial goal aimed to increase socialization and engagement: Pt. will participate in at least three Activity Therapy groups per week. Addendum: 04/06/19 at 0928 by RALPH GRAY ACT Goal changed 04/06/19: Pt. will participate in at least one Activity Therapy group per day.
[2019-04-01 15:55] VITALS: BP 133/83
[2019-04-01] MEDS: GABAPENTIN 300 MG CAPSULE. PO SCH (20:14)
[2019-04-01] MEDS: DIVALPROEX ER 250 MG TAB.ER.24H. PO SCH (20:14)
--- NOTE | 2019-04-01 20:41 | PDOC ---
Exam Note: Jamal Note: Please also refer to the separate dictated note~for this date of service dictated separately.~Patient seen individually. Discussed the patient with Nursing staff reviewed the chart.~Reviewed interim history and current functioning. Reviewed vital signs,~Labs/ Radiology~and current medications noted below. Continue current treatment with the changes noted in the dictated addendum note Assessment: Vital Signs/I&O: Vital Signs Date Time Temp Pulse Resp B/P (MAP) Pulse Ox O2 Delivery O2 Flow Rate FiO2 04/01/19 15:55 97.6 102 20 133/83 (100) 94 04/01/19 05:14 Room Air I & O 03/31/19 03/31/19 04/01/19 15:00 23:00 07:00 Intake Total 480 ml 480 ml Balance 480 ml 480 ml Current Medications: Meds: Current Medications Medications (Trade) Dose Ordered Sig/Radha Route PRN Reason Start Time Stop Time Status Last Admin Dose Admin Quetiapine Fumarate (SEROquel) 12.5 mg BID@0900,1300 PO 04/01/19 09:00 04/01/19 13:17 Clonazepam (KlonoPIN) 0.25 mg BID PO 04/01/19 21:00 04/01/19 20:17 I have reviewed the current psychotropics carefully including drug interactions. Risk benefit ratio favors no change other than as noted in my dictated progress note. Diagnosis: Problems: (1) Mental status change resolved (2) Anxiety disorder (3) Mild cognitive disorder (4) Major depressive disorder, recurrent episode (5) Impulse control disorder PAIGE CAMARA MD Apr 01, 2019 20:41
--- NOTE | 2019-04-01 22:41 | NUR ---
Nursing note: Assumed care of pt in the day room where she was sitting quietly not interacting with anyone. She was compliant with meds and wanted to go to bed. Pt has considerable redness in skin folds and under R breast. Area cleaned and nystatin powder applied. No behaviors.
[2019-04-02] MEDS: LEVOTHYROXINE 88 MCG TABLET PO SCH (05:27)
[2019-04-02] MEDS: POTASSIUM CHLORIDE 20 MEQ TABLET.ER. PO SCH ×2 (05:27→20:09)
[2019-04-02] MEDS: clonazePAM 0.5 MG TABLET PO SCH ×2 (05:27→20:08)
[2019-04-02] MEDS: PANTOPRAZOLE 40 MG TABLET. PO SCH (05:27)
[2019-04-02] MEDS: FUROSEMIDE 40 MG TABLET PO SCH (05:28)
[2019-04-02] MEDS: ACETAMINOPHEN 325 MG TABLET PO SCH ×2 (05:28→20:08)
[2019-04-02] MEDS: QUEtiapine 25 MG TABLET. PO SCH ×2 (05:28→14:22)
[2019-04-02 06:28] VITALS: BP 123/85
[2019-04-02] MEDS: buPROPion XL 150 MG TAB.ER.24H PO SCH (08:18)
[2019-04-02] MEDS: NYSTATIN TOPICAL POWDER 15GM BOTTLE. TP SCH ×2 (11:00→20:09)
[2019-04-02] MEDS: LIDOCAINE (700MG/PATCH) PATCH. TD SCH (14:21)
--- NOTE | 2019-04-02 15:34 | PN ---
DATE: 03/31/2019 PSYCHIATRIC PROGRESS NOTE This late entry 03/31/2019 covers elements not covered in my initial note. SUBJECTIVE: I met with the patient evening of 03/31/2019. Per JUAN ALBERTO Fink, the patient slept 8 hours previous night. She is alert, oriented to name, date of . UA, C and S is negative. She has been somatic, tearful, stays in a wheelchair, should be using a walker. REVIEW OF SYSTEMS: Ambulation impaired. No CV, , pulmonary, eye system symptoms on review. MENTAL STATUS EXAM: Oriented to herself and situation. Speech has some latency, coherent. Abstraction fair, computation impaired, language function intact, attention span short. Mood and affect withdrawn. LABORATORY DATA: Reviewed. IMPRESSION: Major depressive disorder with psychotic features; anxiety disorder, unspecified; mild cognitive impairment. PLAN: Change Abilify to Seroquel 12.5 mg 9 a.m., 1:00 p.m. Maintain Klonopin 0.5 b.i.d., but we will gradually taper this. Continue to gradually increase the Luvox for some of her OCD symptoms. Maintain Depakote and Neurontin for now. PAIGE CAMARA MD DR: SAM/david JOB#: [id number] / [id number]
[2019-04-02 16:07] VITALS: BP 102/68
--- NOTE | 2019-04-02 18:13 | NUR ---
Orders received for her c/o pain in calves due to her w/c. Instructed to ambulate more and get out of w/c while seated in dayroom by transferring to one of the chairs or seats. Applied lidocaine patches to the back of legs above knee level for wearing on the w/c. Pt. has not been ambulating for past two days. Has a walker and states she used it all the time prior to this adm. Consult requested from P/T to eval and treat. Also pt. reports she had compressions wraps in the past that helped, O/T consulted for lymphodema assessment. Pt. is depressed, and angry at self for being overweight. Flat affect, cooperative with all meds. Provided education on each med she is currently taking. Addendum: 04/06/19 at 1155 by CECILIA WOODWARD RN Order for lymphedema assessment cancelled-OT does not address lymphedema. PT and OT are both working with patient already. Wound care consulted for lymphedema wraps.
[2019-04-02] MEDS: GABAPENTIN 300 MG CAPSULE. PO SCH (20:08)
[2019-04-02] MEDS: DIVALPROEX ER 250 MG TAB.ER.24H. PO SCH (20:08)
[2019-04-02] MEDS: MINERAL OIL/PETROLATUM TOPICAL CREAM 113GM JAR. TP SCH (20:09)
--- NOTE | 2019-04-02 20:31 | PDOC ---
Exam Note: Jamal Note: Please also refer to the separate dictated note~for this date of service dictated separately.~Patient seen individually. Discussed the patient with Nursing staff reviewed the chart.~Reviewed interim history and current functioning. Reviewed vital signs,~Labs/ Radiology~and current medications noted below. Continue current treatment with the changes noted in the dictated addendum note Assessment: Vital Signs/I&O: Vital Signs Date Time Temp Pulse Resp B/P (MAP) Pulse Ox O2 Delivery O2 Flow Rate FiO2 04/02/19 16:07 97.9 99 18 102/68 (79) 96 04/01/19 05:14 Room Air I & O 04/01/19 04/01/19 04/02/19 15:00 23:00 07:00 Intake Total 1080 ml 240 ml Balance 1080 ml 240 ml Current Medications: Meds: Current Medications Medications (Trade) Dose Ordered Sig/Radha Route PRN Reason Start Time Stop Time Status Last Admin Dose Admin Clonazepam (KlonoPIN) 0.25 mg BID PO 04/01/19 21:00 04/02/19 20:08 Bupropion HCl (Wellbutrin Xl) 150 mg DAILY PO 04/02/19 09:00 04/02/19 08:18 Nystatin (Nystop) 1 diamond BID TP 04/02/19 11:00 04/02/19 20:09 Multi-Ingred Cream/Lotion/Oil/ Oint (Hydrocerin) 1 diamond BID TP 04/02/19 21:00 04/02/19 20:09 Lidocaine (Lidoderm) 2 patch DAILY TD 04/02/19 12:30 04/02/19 14:21 I have reviewed the current psychotropics carefully including drug interactions. Risk benefit ratio favors no change other than as noted in my dictated progress note. Diagnosis: Problems: (1) Mental status change resolved (2) Anxiety disorder (3) Mild cognitive disorder (4) Major depressive disorder, recurrent episode (5) Impulse control disorder PAIGE CAMARA MD Apr 02, 2019 20:31
[2019-04-02] MEDS: PATCH REMOVAL. MC SCH (21:54)
--- NOTE | 2019-04-02 22:00 | NUR ---
Patient up in wheelchair in day room. Compliant with medications and cooperative with cares. Eucerin cream applied to lower legs and heels at bed time. Patient appears to have lymphedema on bilateral lower legs, previous shift nurse reported that she consulted with physician. Patient denies SI when asked and states she now has a "better appetite" but admits she still feels sad. No crying spells observed this shift.
--- NOTE | 2019-04-02 23:39 | PN ---
DATE: 04/01/2019 PSYCHIATRIC PROGRESS NOTE This late entry 04/01/2019 covers elements not covered in my initial note. SUBJECTIVE: I met with the patient evening of 04/01/2019. The patient slept 5-1/2 hours previous night. The patient has been sad, depressed, somewhat helpless, somatic, tearful, not attending groups, somewhat withdrawn. She is complaining of her wheelchair, but physical therapy staff preferred to have her start ambulating gradually and do not want to give her a bigger wheelchair, which will only make her more comfortable and difficult to start ambulating since she was using a walker and ambulating independently previously. REVIEW OF SYSTEMS: Ambulation impaired. No CV, , pulmonary, eye system symptoms on review. Reliability varies. MENTAL STATUS EXAM: Oriented to herself and situation. Speech has some latency, coherent. Abstraction fair, computation impaired, language function intact, attention span short. Mood and affect remains depressed, anxious, labile. LABORATORY DATA: Reviewed. IMPRESSION: Major depressive disorder, rule out psychotic features, mild cognitive impairment. PLAN: Start Wellbutrin-XL 150 mg a day. We will taper the Klonopin from 0.5 b.i.d. to 0.25 b.i.d., maintain Seroquel 12.5 b.i.d., Depakote ER 750 at bedtime, level therapeutic at 88, Luvox increasing to 50 mg a day on 04/03/2019. Rest unchanged for now. PAIGE CAMARA MD DR: SAM/david JOB#: [id number] / [id number]
[2019-04-03] MEDS: LEVOTHYROXINE 88 MCG TABLET PO SCH (05:38)
[2019-04-03 05:45] VITALS: BP 112/55
[2019-04-03] MEDS: PANTOPRAZOLE 40 MG TABLET. PO SCH (08:13)
[2019-04-03] MEDS: POTASSIUM CHLORIDE 20 MEQ TABLET.ER. PO SCH ×2 (08:13→20:08)
[2019-04-03] MEDS: FUROSEMIDE 40 MG TABLET PO SCH (08:13)
[2019-04-03] MEDS: ACETAMINOPHEN 325 MG TABLET PO SCH ×2 (08:14→20:08)
[2019-04-03] MEDS: buPROPion XL 150 MG TAB.ER.24H PO SCH (08:14)
[2019-04-03] MEDS: MINERAL OIL/PETROLATUM TOPICAL CREAM 113GM JAR. TP SCH ×2 (08:15→20:08)
[2019-04-03] MEDS: NYSTATIN TOPICAL POWDER 15GM BOTTLE. TP SCH ×2 (08:15→20:09)
[2019-04-03] MEDS: LIDOCAINE (700MG/PATCH) PATCH. TD SCH (08:15)
[2019-04-03] MEDS: QUEtiapine 25 MG TABLET. PO SCH ×2 (08:15→12:30)
[2019-04-03] MEDS: clonazePAM 0.5 MG TABLET PO SCH ×2 (08:16→20:07)
--- NOTE | 2019-04-03 10:49 | NUR ---
Pt located in the dining room this morning. Pt calm and compliant with whole medications. Pt continues to have a flat affect, stated that she is concerned with her weight. Pt withdrawn and drowsy in the dayroom later this morning.
[2019-04-03 15:37] VITALS: BP 104/69
--- NOTE | 2019-04-03 20:06 | PDOC ---
Exam Note: Jamal Note: Please also refer to the separate dictated note~for this date of service dictated separately.~Patient seen individually. Discussed the patient with Nursing staff reviewed the chart.~Reviewed interim history and current functioning. Reviewed vital signs,~Labs/ Radiology~and current medications noted below. Continue current treatment with the changes noted in the dictated addendum note Assessment: Vital Signs/I&O: Vital Signs Date Time Temp Pulse Resp B/P (MAP) Pulse Ox O2 Delivery O2 Flow Rate FiO2 04/03/19 15:37 97.0 87 16 104/69 (81) 98 04/03/19 05:45 Room Air I & O 04/02/19 04/02/19 04/03/19 15:00 23:00 07:00 Intake Total 960 ml 480 ml 100 ml Balance 960 ml 480 ml 100 ml Current Medications: Meds: Current Medications Medications (Trade) Dose Ordered Sig/Radha Route PRN Reason Start Time Stop Time Status Last Admin Dose Admin Fluvoxamine Maleate (Luvox) 50 mg DAILY PO 04/03/19 09:00 04/03/19 08:14 Multi-Ingred Cream/Lotion/Oil/ Oint (Hydrocerin) 1 diamond BID TP 04/02/19 21:00 04/03/19 08:15 Miscellaneous (Lidoderm Patch Removal) 1 ea QHS MC 04/02/19 21:00 04/02/19 21:54 I have reviewed the current psychotropics carefully including drug interactions. Risk benefit ratio favors no change other than as noted in my dictated progress note. Diagnosis: Problems: (1) Mental status change resolved (2) Anxiety disorder (3) Mild cognitive disorder (4) Major depressive disorder, recurrent episode (5) Impulse control disorder PAIGE CAMARA MD Apr 03, 2019 20:06
[2019-04-03] MEDS: GABAPENTIN 300 MG CAPSULE. PO SCH (20:08)
[2019-04-03] MEDS: DIVALPROEX ER 250 MG TAB.ER.24H. PO SCH (20:08)
[2019-04-03] MEDS: PATCH REMOVAL. MC SCH (21:00)
--- NOTE | 2019-04-04 00:48 | PN ---
DATE: 04/02/2019 PSYCHIATRIC PROGRESS NOTE This late entry 04/02/2019 covers the elements not covered in my initial note. SUBJECTIVE: I met with the patient in the evening. Overall, the patient is doing a little better per nursing report, a little more interactive. Subjectively, she states she feels better, less depressed. REVIEW OF SYSTEMS: Ambulation impaired, in wheelchair. No CV, , pulmonary, eye system symptoms on review. MENTAL STATUS EXAM: Oriented to herself and situation. Speech has some latency, coherent. Abstraction fair, computation impaired, language function intact, attention span short. Mood and affect is still withdrawn, but better than before. LABORATORY DATA: Reviewed. IMPRESSION: Unchanged from initial note. PLAN: No change from initial note. Maintain Seroquel, Klonopin, Neurontin, Depakote, Luvox is being adjusted and Wellbutrin at current dosage. MAN All CAMARA MD DR: SAM/david JOB#: [id number] / [id number]
[2019-04-04] MEDS: LEVOTHYROXINE 88 MCG TABLET PO SCH (05:38)
[2019-04-04 06:19] VITALS: BP 98/65
[2019-04-04 07:14] LABS: BASO % 1 % (0-3); EOS % 0 % (0-3); HEMATOCRIT 43.2 % (36.0-47.0); LYMPH # 2.2 x10^3/uL (1.0-4.8); LYMPH % 34 % (24-48); MEAN CORPUSCULAR HEMOGLOBIN 28 pg (25-35); MEAN CORPUSCULAR HGB CONC 32 g/dL (31-37); MEAN CORPUSCULAR VOLUME 85 fL (79-100); MONO # 0.5 x10^3/uL (0.0-1.1); MONO % 8 % (0-9); NEUT # 3.7 x10^3uL (1.8-7.7); NEUT % 57 % (31-73); PLATELET COUNT 253 x10^3/uL (140-400); RED BLOOD COUNT 5.05 x10^6/uL (3.50-5.40); RED CELL DISTRIBUTION WIDTH 16.1 % (11.5-14.5); WHITE BLOOD COUNT 6.4 x10^3/uL (4.0-11.0)
[2019-04-04 07:34] LABS: ALBUMIN 3.2 g/dL (3.4-5.0); ALBUMIN/GLOBULIN RATIO 0.7 (1.0-1.7); CALCIUM 9.5 mg/dL (8.5-10.1); GFR 25.5; POTASSIUM 4.6 mmol/L (3.5-5.1); TOTAL BILIRUBIN 0.4 mg/dL (0.2-1.0); TOTAL PROTEIN 7.7 g/dL (6.4-8.2)
[2019-04-04] MEDS: POTASSIUM CHLORIDE 20 MEQ TABLET.ER. PO SCH ×2 (08:38→20:14)
[2019-04-04] MEDS: buPROPion XL 150 MG TAB.ER.24H PO SCH (08:38)
[2019-04-04] MEDS: PANTOPRAZOLE 40 MG TABLET. PO SCH (08:38)
[2019-04-04] MEDS: ACETAMINOPHEN 325 MG TABLET PO SCH ×2 (08:38→20:14)
[2019-04-04] MEDS: clonazePAM 0.5 MG TABLET PO SCH ×2 (08:39→20:15)
[2019-04-04] MEDS: QUEtiapine 25 MG TABLET. PO SCH ×2 (08:39→12:28)
[2019-04-04] MEDS: FUROSEMIDE 40 MG TABLET PO SCH (08:40)
[2019-04-04] MEDS: NYSTATIN TOPICAL POWDER 15GM BOTTLE. TP SCH ×2 (08:40→20:15)
[2019-04-04] MEDS: LIDOCAINE (700MG/PATCH) PATCH. TD SCH (08:41)
[2019-04-04] MEDS: MINERAL OIL/PETROLATUM TOPICAL CREAM 113GM JAR. TP SCH ×2 (11:15→20:15)
--- NOTE | 2019-04-04 14:51 | PN ---
DATE: 04/03/2019 PSYCHIATRIC PROGRESS NOTE This late entry 04/03/2019 covers elements not covered in my initial note. SUBJECTIVE: I met with the patient in the evening. Per Danae RN, patient slept 6-1/2 hours previous night. She has been somewhat drowsy, withdrawn, flat in her affect, still depressed. We will check labs morning of 04/04/2019. REVIEW OF SYSTEMS: Ambulation impaired, in wheelchair. No CV, , pulmonary, eye system symptoms on review. She was sad, tearful as I met with her. MENTAL STATUS EXAM: Oriented to herself and situation. Speech moderate latency, often responses monosyllabic. Abstraction fair, computation impaired, language function intact, attention span short. Mood and affect are withdrawn, depressed. LABORATORY DATA: Reviewed. IMPRESSION: Unchanged from initial note. PLAN: No change from initial note. Continue current psychotropics. Seroquel, Klonopin, gabapentin, Depakote, Luvox, Wellbutrin. Adjust as clinically indicated. MAN All CAMARA MD DR: SAM/david JOB#: [id number] / [id number]
[2019-04-04 16:08] VITALS: BP 110/74
--- NOTE | 2019-04-04 18:27 | NUR ---
Patient has been restless, anxious at times, attention seeking and helpless at times; she was calm, compliant, and pleasant at breakfast where she was mildly confused to place (she knew she was in a [facility] in [place]). She spent the morning in the day room, participating in groups. Patient participated in SW group after lunch then laid down for a nap. She called for help to get her up for dinner, and then was able to toilet herself and get to the dining room without assistance. Will continue to monitor and report to oncoming shift.
--- NOTE | 2019-04-04 19:52 | PDOC ---
Exam Note: Jamal Note: Please also refer to the separate dictated note~for this date of service dictated separately.~Patient seen individually. Discussed the patient with Nursing staff reviewed the chart.~Reviewed interim history and current functioning. Reviewed vital signs,~Labs/ Radiology~and current medications noted below. Continue current treatment with the changes noted in the dictated addendum note Assessment: Vital Signs/I&O: Vital Signs Date Time Temp Pulse Resp B/P (MAP) Pulse Ox O2 Delivery O2 Flow Rate FiO2 04/04/19 16:08 97.4 89 16 110/74 (86) 98 04/03/19 05:45 Room Air I & O 04/03/19 04/03/19 04/04/19 15:00 23:00 07:00 Intake Total 600 ml 240 ml 120 ml Balance 600 ml 240 ml 120 ml Labs: Laboratory Tests Test 04/04/19 06:15 White Blood Count 6.4 x10^3/uL (4.0-11.0) Red Blood Count 5.05 x10^6/uL (3.50-5.40) Hemoglobin 14.0 g/dL (12.0-15.5) Hematocrit 43.2 % (36.0-47.0) Mean Corpuscular Volume 85 fL (79-100) Mean Corpuscular Hemoglobin 28 pg (25-35) Mean Corpuscular Hemoglobin Concent 32 g/dL (31-37) Red Cell Distribution Width 16.1 % (11.5-14.5) H Platelet Count 253 x10^3/uL (140-400) Neutrophils (%) (Auto) 57 % (31-73) Lymphocytes (%) (Auto) 34 % (24-48) Monocytes (%) (Auto) 8 % (0-9) Eosinophils (%) (Auto) 0 % (0-3) Basophils (%) (Auto) 1 % (0-3) Neutrophils # (Auto) 3.7 x10^3uL (1.8-7.7) Lymphocytes # (Auto) 2.2 x10^3/uL (1.0-4.8) Monocytes # (Auto) 0.5 x10^3/uL (0.0-1.1) Eosinophils # (Auto) 0.0 x10^3/uL (0.0-0.7) Basophils # (Auto) 0.0 x10^3/uL (0.0-0.2) Sodium Level 142 mmol/L (136-145) Potassium Level 4.6 mmol/L (3.5-5.1) Chloride Level 102 mmol/L (98-107) Carbon Dioxide Level 28 mmol/L (21-32) Anion Gap 12 (6-14) Blood Urea Nitrogen 41 mg/dL (7-20) H Creatinine 2.0 mg/dL (0.6-1.0) H Estimated GFR (Cockcroft-Gault) 25.5 BUN/Creatinine Ratio 21 (6-20) H Glucose Level 72 mg/dL (70-99) Calcium Level 9.5 mg/dL (8.5-10.1) Total Bilirubin 0.4 mg/dL (0.2-1.0) Aspartate Amino Transferase (AST) 19 U/L (15-37) Alanine Aminotransferase (ALT) 11 U/L (14-59) L Alkaline Phosphatase 76 U/L (46-116) Total Protein 7.7 g/dL (6.4-8.2) Albumin 3.2 g/dL (3.4-5.0) L Albumin/Globulin Ratio 0.7 (1.0-1.7) L Current Medications: I have reviewed the current psychotropics carefully including drug interactions. Risk benefit ratio favors no change other than as noted in my dictated progress note. Diagnosis: Problems: (1) Mental status change resolved (2) Anxiety disorder (3) Mild cognitive disorder (4) Major depressive disorder, recurrent episode (5) Impulse control disorder PAIGE CAMARA MD Apr 04, 2019 19:52
[2019-04-04] MEDS: DIVALPROEX ER 250 MG TAB.ER.24H. PO SCH (20:14)
[2019-04-04] MEDS: GABAPENTIN 300 MG CAPSULE. PO SCH (20:14)
[2019-04-04] MEDS: PATCH REMOVAL. MC SCH (20:18)
--- NOTE | 2019-04-04 23:55 | NUR ---
Nursing Note Pt denies SI this pm, states she feels much better now. Pleasant and cooperative compliant with meds.
[2019-04-05] MEDS: LEVOTHYROXINE 88 MCG TABLET PO SCH (06:00)
[2019-04-05 06:08] VITALS: BP 110/71
[2019-04-05] MEDS: PANTOPRAZOLE 40 MG TABLET. PO SCH (08:47)
[2019-04-05] MEDS: QUEtiapine 25 MG TABLET. PO SCH ×2 (08:47→13:21)
[2019-04-05] MEDS: FUROSEMIDE 40 MG TABLET PO SCH (08:47)
[2019-04-05] MEDS: ACETAMINOPHEN 325 MG TABLET PO SCH ×2 (08:48→20:16)
[2019-04-05] MEDS: POTASSIUM CHLORIDE 20 MEQ TABLET.ER. PO SCH ×2 (08:48→20:16)
[2019-04-05] MEDS: clonazePAM 0.5 MG TABLET PO SCH ×2 (08:48→20:16)
[2019-04-05] MEDS: NYSTATIN TOPICAL POWDER 15GM BOTTLE. TP SCH ×2 (08:48→20:17)
[2019-04-05] MEDS: buPROPion XL 300 MG TAB.ER.24H. PO SCH (08:48)
[2019-04-05] MEDS: MINERAL OIL/PETROLATUM TOPICAL CREAM 113GM JAR. TP SCH ×2 (08:48→20:21)
[2019-04-05] MEDS: LIDOCAINE (700MG/PATCH) PATCH. TD SCH (08:49)
[2019-04-05 16:33] VITALS: BP 119/79
--- NOTE | 2019-04-05 18:11 | NUR ---
Patient has been calm, compliant, and pleasant during this shift. She spent the morning in the day room, participating in groups. Patient expressed concern about her edema, MD notified, new orders received. Will continue to monitor and report to oncoming shift.
--- NOTE | 2019-04-05 20:01 | PDOC ---
Exam Note: Jamal Note: Please also refer to the separate dictated note~for this date of service dictated separately.~Patient seen individually. Discussed the patient with Nursing staff reviewed the chart.~Reviewed interim history and current functioning. Reviewed vital signs,~Labs/ Radiology~and current medications noted below. Continue current treatment with the changes noted in the dictated addendum note Assessment: Vital Signs/I&O: Vital Signs Date Time Temp Pulse Resp B/P (MAP) Pulse Ox O2 Delivery O2 Flow Rate FiO2 04/05/19 16:33 97.5 85 16 119/79 (92) 97 04/03/19 05:45 Room Air I & O 04/04/19 04/04/19 04/05/19 15:00 23:00 07:00 Intake Total 600 ml 360 ml Balance 600 ml 360 ml Current Medications: Meds: Current Medications Medications (Trade) Dose Ordered Sig/Radha Route PRN Reason Start Time Stop Time Status Last Admin Dose Admin Bupropion HCl (Wellbutrin Xl) 300 mg DAILY PO 04/05/19 09:00 04/05/19 08:48 I have reviewed the current psychotropics carefully including drug interactions. Risk benefit ratio favors no change other than as noted in my dictated progress note. Diagnosis: Problems: (1) Mental status change resolved (2) Anxiety disorder (3) Mild cognitive disorder (4) Major depressive disorder, recurrent episode (5) Impulse control disorder PAIGE CAMARA MD Apr 05, 2019 20:01
[2019-04-05] MEDS: DIVALPROEX ER 250 MG TAB.ER.24H. PO SCH (20:17)
[2019-04-05] MEDS: GABAPENTIN 300 MG CAPSULE. PO SCH (20:17)
[2019-04-05] MEDS: PATCH REMOVAL. MC SCH (20:17)
--- NOTE | 2019-04-05 23:31 | NUR ---
Nursing Note Pt pleasant cooperative up in day room, compliant with meds. Smiles on approach, denies SI HI.
--- NOTE | 2019-04-06 01:30 | PN ---
DATE: 04/04/2019 PSYCHIATRIC PROGRESS NOTE This late entry 04/04/2019 covers elements not covered in my initial note. SUBJECTIVE: I met with the patient in the evening. Per JUAN ALBERTO De Luna, the patient slept 6-1/4 hours previous night. Previous night, she appeared helpless, withdrawn, depressed, tearful about complaining of knee pain. During the day on 04/04/2019, she did attend afternoon groups. Less isolated. REVIEW OF SYSTEMS: Ambulation impaired, in wheelchair. No CV, , pulmonary, eye system symptoms on review. Does complain of knee pain. MENTAL STATUS EXAMINATION: Oriented reasonably. Speech has some latency, coherent. Abstraction fair, computation impaired, language function intact. Mood and affect remains depressed. LABORATORY DATA: Reviewed. IMPRESSION: Unchanged from initial note. PLAN: No change from initial note. After she has been on Wellbutrin-XL 150 mg a day for 3 days, we will make it 300 mg a day. Rest unchanged from initial note. PAIGE CAMARA MD DR: SAM/david JOB#: [id number] / [id number]
[2019-04-06 06:08] VITALS: BP 113/74
[2019-04-06] MEDS: LEVOTHYROXINE 88 MCG TABLET PO SCH (06:08)
--- NOTE | 2019-04-06 08:53 | TX PLAN ---
Interdisciplinary Tx Plan Admission Information Mar 28, 2019 at 20:30 Legal Status (on Admission): Voluntary DPOA/Guardian Name: Pt is a self-sign Contact Other Contact Name: Meliza Monet Other Contact Allergies: Coded Allergies: egg (Verified Allergy, Unknown, 03/28/19) fish derived (Verified Allergy, Unknown, 03/28/19) Diagnoses Reasons for Admission: Depressed, Sig. Change Appetite, Suicidal ideation, Other Problem in Patient's Words: Pt has just been feeling really down lately. Additional Admission Comments: According to the intake, pt is having SI without a a plan. Pt is refusing to eat, wants to , refusing medications, severely depressed, crying spells daily. Problems Active Problems: Depressed feelings Withdrawn Flat affect Need for physical therapy Inactive Problems: Medication compliant Pt Strengths/Limitations Ability for [place]: Fair Cognitive Functioning/Ability: Fair Communication Skills/Ability: Fair Financial Resources: Poor Insight/Judgement: Poor Intellectual Ability: Fair Physical Health: Poor Social Skills: Fair Stability in Family: Poor Stability in School/Work: Poor Discharge Criteria Discharge Criteria: Able meet basic life need, Adequate arrangements @DC, Improved behavior, Improved mood/thought Preliminary Discharge Plan Preliminary DC Plan: Current Living Arrange. Initial D/C Plan Identified Discharge Needs: Pt will plan to return to [facility] Identified Problems/Hx/Goals Objectives/Short-Term Goals Short Term Goals: Symp. 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 Education: Pt graduated High School (12th grade) Treatment Plan Explained Patient/Admitted Attorneys had this treatment plan explained to him/her as indicated by the signature below and has been given the opportunity to ask questions and make suggestions: Date: Patient/Admitted Attorneys Signature: Team Members Signatures Team Members Psychiatrist Date Nursing Date CM/SW Date Activity Therapy Date Other Date Other Date [facility] 21, 2019 08:53
--- NOTE | 2019-04-06 08:56 | TX PLAN ---
Interdisciplinary Tx Plan Admission Information Mar 28, 2019 at 20:30 Legal Status (on Admission): Voluntary DPOA/Guardian Name: Pt is a self-sign Contact Other Contact Name: Meliza Monet Other Contact Allergies: Coded Allergies: egg (Verified Allergy, Unknown, 03/28/19) fish derived (Verified Allergy, Unknown, 03/28/19) Diagnoses Reasons for Admission: Depressed, Sig. Change Appetite, Suicidal ideation, Other Problem in Patient's Words: Pt has just been feeling really down lately. Additional Admission Comments: According to the intake, pt is having SI without a a plan. Pt is refusing to eat, wants to , refusing medications, severely depressed, crying spells daily. Problems Active Problems: Depressed feelings Withdrawn Flat affect Need for physical therapy Inactive Problems: Medication compliant Pt Strengths/Limitations Ability for [place]: Fair Cognitive Functioning/Ability: Fair Communication Skills/Ability: Fair Financial Resources: Poor Insight/Judgement: Poor Intellectual Ability: Fair Physical Health: Poor Social Skills: Fair Stability in Family: Poor Stability in School/Work: Poor Discharge Criteria Discharge Criteria: Able meet basic life need, Adequate arrangements @DC, Improved behavior, Improved mood/thought Preliminary Discharge Plan Preliminary DC Plan: Current Living Arrange. Initial D/C Plan Identified Discharge Needs: Pt will plan to return to [facility] Identified Problems/Hx/Goals Objectives/Short-Term Goals Short Term Goals: Dec. Symp. Depression, Medication Stabilization, Monitor Med Effects, Promote Coping Skill Short Term Goals in Patient's: Be less depressed Get my medications corrected Interventions/Frequency Staff Interventions/Frequency&: Psychiatrist to see pt atleast 3x per week. warp worker to see pt at least 2x per week. Nursing to complete 15 minute checks. Encourage group participation as she is withdrawn to her room often. 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 Education: Pt graduated High School (12th grade) Community Follow-up Primary care Neurology Psychiatry Counseling Treatment Plan Explained Patient/Accuracy Expert had this treatment plan explained to him/her as indicated by the signature below and has been given the opportunity to ask questions and make suggestions: Date: Patient/Accuracy Expert Signature: Patient/Accuracy Expert Decline: Yes Team Members Signatures Team Members Psychiatrist Date Nursing Date CM/SW Date Activity Therapy Date Other Date Other Date PAZ,RAMIRO Apr 06, 2019 08:55
[2019-04-06] MEDS: LIDOCAINE (700MG/PATCH) PATCH. TD SCH (08:57)
[2019-04-06] MEDS: MINERAL OIL/PETROLATUM TOPICAL CREAM 113GM JAR. TP SCH ×2 (08:57→19:51)
[2019-04-06] MEDS: FUROSEMIDE 40 MG TABLET PO SCH (08:59)
[2019-04-06] MEDS: CHOLECALCIFEROL (VITAMIN D3) 50,000 UNIT CAPSULE PO SCH (08:59)
[2019-04-06] MEDS: QUEtiapine 25 MG TABLET. PO SCH ×2 (08:59→13:44)
[2019-04-06] MEDS: NYSTATIN TOPICAL POWDER 15GM BOTTLE. TP SCH ×2 (08:59→19:51)
[2019-04-06] MEDS: PANTOPRAZOLE 40 MG TABLET. PO SCH (09:00)
[2019-04-06] MEDS: POTASSIUM CHLORIDE 20 MEQ TABLET.ER. PO SCH ×2 (09:00→19:51)
[2019-04-06] MEDS: buPROPion XL 300 MG TAB.ER.24H. PO SCH (09:00)
[2019-04-06] MEDS: clonazePAM 0.5 MG TABLET PO SCH (09:00)
[2019-04-06] MEDS: ACETAMINOPHEN 325 MG TABLET PO SCH ×2 (09:00→19:51)
--- NOTE | 2019-04-06 10:18 | NUR ---
Patient was in the dining room after breakfast for med pass. Patient calm at this time and stated that she is looking forward to having Thanksgiving dinner with her family. She also stated that she wished she still had her house, she doesn't like to live at [facility]. Patient is compliant with medications and uses walker to ambulate to and from meals. Bilateral lower edema is present, patient currently on medication for edema. Nurse encouraged patient to lay down or sit with feet and legs elevated. Patient walked to room with OT to brush her teeth and was later observed crying in the hallway. OT stated that patients mood was very labile during their session. Patient currently in the day room and is not crying at this time.
--- NOTE | 2019-04-06 10:28 | NUR ---
WEEKLY ACTIVITY THERAPY NOTE Date of Admission: 03/29/2019 Date of AT Assessment: 04/01/2019 Goal aimed: to increase socialization and engagement Initial goal: Pt. will participate in at least three Activity Therapy groups per week. Weekly progress towards goal: exceeded 8/ Group participation level: minimal to moderate Weekly highlights: giving suggestions during painting on Wednesday, named turkey, "Guillermo." Guessed many pictionary clues correctly Behaviors observed: sleeping often- even in group at times, increasing participation and smiling as week progresses, pleasant, social Plan: change goal to: Pt. will participate in at least one Activity Therapy group per day. Beneficial adaptations: positive response to trivia
--- NOTE | 2019-04-06 10:56 | NUR ---
WEEKLY NOTE: Pt is sleeping on average 6.75 and eating on average 80% of meals. Pt has minimal participation in group activities and needs encouragement to attend. Pt is somatic and has a flat affect, most conversations are negative in connotation. Pt is denying SI but is somewhat drowsy through the day. Pt Wellbutrin was increased and appears to be doing well on that. Pt is working on her gait and strength with PT an OT; ELOS is scheduled for the end of next week or beginning of the week after.
--- NOTE | 2019-04-06 11:51 | NUR ---
Spoke with PT, Maye. That department does NOT do lymphedema consults and neither does OT. Cancelled order and will pass on to Dr. Moore during rounds.
[2019-04-06 16:08] VITALS: BP 95/68
[2019-04-06] MEDS: GABAPENTIN 300 MG CAPSULE. PO SCH (19:51)
[2019-04-06] MEDS: DIVALPROEX ER 250 MG TAB.ER.24H. PO SCH (19:51)
--- NOTE | 2019-04-06 20:24 | PDOC ---
Exam Note: Jamal Note: Please also refer to the separate dictated note~for this date of service dictated separately.~Patient seen individually. Discussed the patient with Nursing staff reviewed the chart.~Reviewed interim history and current functioning. Reviewed vital signs,~Labs/ Radiology~and current medications noted below. Continue current treatment with the changes noted in the dictated addendum note Assessment: Vital Signs/I&O: Vital Signs Date Time Temp Pulse Resp B/P (MAP) Pulse Ox O2 Delivery O2 Flow Rate FiO2 04/06/19 16:08 97.9 78 18 95/68 (77) 96 04/03/19 05:45 Room Air I & O 04/05/19 04/05/19 04/06/19 15:00 23:00 07:00 Intake Total 840 ml 600 ml Balance 840 ml 600 ml Current Medications: I have reviewed the current psychotropics carefully including drug interactions. Risk benefit ratio favors no change other than as noted in my dictated progress note. Diagnosis: Problems: (1) Mental status change resolved (2) Anxiety disorder (3) Mild cognitive disorder (4) Major depressive disorder, recurrent episode (5) Impulse control disorder PAIGE CAMARA MD Apr 06, 2019 20:24
[2019-04-06] MEDS: PATCH REMOVAL. MC SCH (21:00)
[2019-04-07] MEDS: LEVOTHYROXINE 88 MCG TABLET PO SCH (05:29)
[2019-04-07 06:27] VITALS: BP 94/67
[2019-04-07] MEDS: PANTOPRAZOLE 40 MG TABLET. PO SCH (07:30)
[2019-04-07] MEDS: clonazePAM 0.5 MG TABLET PO SCH (09:00)
[2019-04-07] MEDS: buPROPion XL 300 MG TAB.ER.24H. PO SCH (09:00)
[2019-04-07] MEDS: POTASSIUM CHLORIDE 20 MEQ TABLET.ER. PO SCH ×2 (09:00→19:42)
[2019-04-07] MEDS: NYSTATIN TOPICAL POWDER 15GM BOTTLE. TP SCH ×2 (09:00→19:42)
[2019-04-07] MEDS: LIDOCAINE (700MG/PATCH) PATCH. TD SCH (09:00)
[2019-04-07] MEDS: ACETAMINOPHEN 325 MG TABLET PO SCH ×2 (09:00→19:42)
[2019-04-07] MEDS: FUROSEMIDE 40 MG TABLET PO SCH (09:00)
[2019-04-07] MEDS: MINERAL OIL/PETROLATUM TOPICAL CREAM 113GM JAR. TP SCH ×2 (09:00→21:00)
[2019-04-07] MEDS: QUEtiapine 25 MG TABLET. PO SCH ×2 (09:00→13:00)
[2019-04-07 16:29] VITALS: BP 101/69
--- NOTE | 2019-04-07 18:16 | NUR ---
Pt refused to come out for breakfast. Took am meds. Pt up for lunch and out to day room. Flat affect. Order received to increase Wellbutrin to 450mg.
--- NOTE | 2019-04-07 18:35 | NUR ---
Wound Care Wound care consult for lymphedema wrap. WC does not perform lymphedema wraps, discussed with Nikky AVENDANO and recommended size G medigrips from toes to knees, 1-2 layers, for compression. pt will need to follow up in lymphedema clinic to obtain home compression garments. WC will sign off at this time.
[2019-04-07] MEDS: GABAPENTIN 300 MG CAPSULE. PO SCH (19:41)
[2019-04-07] MEDS: DIVALPROEX ER 250 MG TAB.ER.24H. PO SCH (19:42)
[2019-04-07] MEDS: PATCH REMOVAL. MC SCH (19:43)
--- NOTE | 2019-04-07 20:40 | PDOC ---
Exam Note: Jamal Note: Please also refer to the separate dictated note~for this date of service dictated separately.~Patient seen individually. Discussed the patient with Nursing staff reviewed the chart.~Reviewed interim history and current functioning. Reviewed vital signs,~Labs/ Radiology~and current medications noted below. Continue current treatment with the changes noted in the dictated addendum note Assessment: Vital Signs/I&O: Vital Signs Date Time Temp Pulse Resp B/P (MAP) Pulse Ox O2 Delivery O2 Flow Rate FiO2 04/07/19 16:29 98.4 83 20 101/69 (80) 100 04/03/19 05:45 Room Air I & O 04/06/19 04/06/19 04/07/19 15:00 23:00 07:00 Intake Total 600 ml 600 ml Balance 600 ml 600 ml Current Medications: Meds: Current Medications Medications (Trade) Dose Ordered Sig/Radha Route PRN Reason Start Time Stop Time Status Last Admin Dose Admin Clonazepam (KlonoPIN) 0.25 mg DAILY PO 04/07/19 09:00 04/09/19 11:00 04/07/19 09:00 I have reviewed the current psychotropics carefully including drug interactions. Risk benefit ratio favors no change other than as noted in my dictated progress note. Diagnosis: Problems: (1) Mental status change resolved (2) Anxiety disorder (3) Mild cognitive disorder (4) Major depressive disorder, recurrent episode (5) Impulse control disorder PAIGE CAMARA MD Apr 07, 2019 20:40
--- NOTE | 2019-04-07 23:43 | PN ---
DATE: 04/05/2019 PSYCHIATRIC PROGRESS NOTE This late entry of 04/05/2019 covers the elements not covered in my initial note. SUBJECTIVE: I met with the patient in the evening. Per Calixto RN, the patient slept 6-3/4 hours previous night. She has been withdrawn, somewhat flat. Ambulates with a walker, attending groups. Her room was changed to 224. She has not been happy with her prior roommate. REVIEW OF SYSTEMS: Ambulation impaired, in wheelchair. No CV, , pulmonary, eye system symptoms on review. MENTAL STATUS EXAM: Oriented reasonably. Speech has some latency, coherent. Abstraction fair, computation impaired, language function intact, attention span short. Mood and affect somewhat withdrawn, less depressed. LABORATORY DATA: Reviewed. IMPRESSION: Unchanged from initial note. PLAN: No change from initial note. MAN All CAMARA MD DR: SAM/david JOB#: [id number] / [id number]
--- NOTE | 2019-04-08 03:04 | PN ---
DATE: 04/06/2019 PSYCHIATRIC PROGRESS NOTE This late entry 04/06/2019 covers elements not covered in my initial note. SUBJECTIVE: I met with the patient in the evening and staffed at a treatment team meeting with the entire team in the morning. Appetite 80%, average sleep 6-3/4 hours, somatic somewhat flat, withdrawn. No suicidal ideation. Ambulates with walker, which is an improvement from wheelchair. REVIEW OF SYSTEMS: Ambulation impaired. No CV, , pulmonary, eye system symptoms on review. MENTAL STATUS EXAM: Reasonably oriented to place and situation. Speech has some latency, coherent. Abstraction fair, computation impaired, language function intact. Mood and affect less withdrawn. LABORATORY DATA: Reviewed. IMPRESSION: Unchanged from initial note. PLAN: No change from initial note. MAN All CAMARA MD DR: SAM/david JOB#: [id number] / [id number]
[2019-04-08 06:05] VITALS: BP 96/61
[2019-04-08] MEDS: LEVOTHYROXINE 88 MCG TABLET PO SCH (06:05)
[2019-04-08] MEDS: POTASSIUM CHLORIDE 20 MEQ TABLET.ER. PO SCH ×2 (08:22→21:02)
[2019-04-08] MEDS: LIDOCAINE (700MG/PATCH) PATCH. TD SCH (08:22)
[2019-04-08] MEDS: QUEtiapine 25 MG TABLET. PO SCH ×2 (08:22→13:00)
[2019-04-08] MEDS: PANTOPRAZOLE 40 MG TABLET. PO SCH (08:23)
[2019-04-08] MEDS: ACETAMINOPHEN 325 MG TABLET PO SCH ×2 (08:23→21:02)
[2019-04-08] MEDS: FUROSEMIDE 40 MG TABLET PO SCH (08:23)
[2019-04-08] MEDS: clonazePAM 0.5 MG TABLET PO SCH (08:26)
[2019-04-08] MEDS: buPROPion XL 300 MG TAB.ER.24H. PO SCH (08:26)
[2019-04-08] MEDS: buPROPion XL 150 MG TAB.ER.24H PO SCH (08:26)
[2019-04-08] MEDS: NYSTATIN TOPICAL POWDER 15GM BOTTLE. TP SCH ×2 (08:27→21:03)
[2019-04-08] MEDS: MINERAL OIL/PETROLATUM TOPICAL CREAM 113GM JAR. TP SCH ×2 (08:27→21:03)
[2019-04-08 16:02] VITALS: BP 84/69
[2019-04-08 17:59] VITALS: BP 121/84
--- NOTE | 2019-04-08 18:25 | NUR ---
Pt up for meals and out to day room at times. Flat and depressed. Compliant with meds and cares.
--- NOTE | 2019-04-08 20:43 | PDOC ---
Exam Note: Jamal Note: Please also refer to the separate dictated note~for this date of service dictated separately.~Patient seen individually. Discussed the patient with Nursing staff reviewed the chart.~Reviewed interim history and current functioning. Reviewed vital signs,~Labs/ Radiology~and current medications noted below. Continue current treatment with the changes noted in the dictated addendum note Assessment: Vital Signs/I&O: Vital Signs Date Time Temp Pulse Resp B/P (MAP) Pulse Ox O2 Delivery O2 Flow Rate FiO2 04/08/19 17:59 102 121/84 (96) 04/08/19 16:02 97.8 16 98 04/08/19 06:05 Room Air I & O 04/07/19 04/07/19 04/08/19 15:00 23:00 07:00 Intake Total 480 ml 360 ml Balance 480 ml 360 ml Current Medications: Meds: Current Medications Medications (Trade) Dose Ordered Sig/Radha Route PRN Reason Start Time Stop Time Status Last Admin Dose Admin Bupropion HCl (Wellbutrin Xl) 300 mg DAILY PO 04/08/19 09:00 04/08/19 08:26 Bupropion HCl (Wellbutrin Xl) 150 mg DAILY PO 04/08/19 09:00 04/08/19 08:26 I have reviewed the current psychotropics carefully including drug interactions. Risk benefit ratio favors no change other than as noted in my dictated progress note. Diagnosis: Problems: (1) Mental status change resolved (2) Anxiety disorder (3) Mild cognitive disorder (4) Major depressive disorder, recurrent episode (5) Impulse control disorder PAIGE CAMARA MD Apr 08, 2019 20:43
[2019-04-08] MEDS: PATCH REMOVAL. MC SCH (21:00)
[2019-04-08] MEDS: GABAPENTIN 300 MG CAPSULE. PO SCH (21:01)
[2019-04-08] MEDS: DIVALPROEX ER 250 MG TAB.ER.24H. PO SCH (21:02)
--- NOTE | 2019-04-09 01:20 | NUR ---
Last evening pt was in day room watching TV. She seemed a bit more social and took meds whole without difficulty. No behaviors this shift.
[2019-04-09] MEDS: ACETAMINOPHEN 325 MG TABLET PO PRN (05:36)
[2019-04-09] MEDS: LEVOTHYROXINE 88 MCG TABLET PO SCH (05:36)
[2019-04-09 05:52] VITALS: BP 110/73
--- NOTE | 2019-04-09 06:34 | NUR ---
At 0330 when computer was down; pt given PRN Tylenol for knee pain. Now reports it did give her some relief.
[2019-04-09] MEDS: MINERAL OIL/PETROLATUM TOPICAL CREAM 113GM JAR. TP SCH ×2 (09:00→21:00)
[2019-04-09] MEDS: clonazePAM 0.5 MG TABLET PO SCH (09:00)
[2019-04-09] MEDS: NYSTATIN TOPICAL POWDER 15GM BOTTLE. TP SCH ×2 (09:00→21:00)
[2019-04-09] MEDS: QUEtiapine 25 MG TABLET. PO SCH ×2 (09:00→12:48)
[2019-04-09] MEDS: buPROPion XL 150 MG TAB.ER.24H PO SCH (09:05)
[2019-04-09] MEDS: PANTOPRAZOLE 40 MG TABLET. PO SCH (09:05)
[2019-04-09] MEDS: POTASSIUM CHLORIDE 20 MEQ TABLET.ER. PO SCH ×2 (09:05→21:01)
[2019-04-09] MEDS: ACETAMINOPHEN 325 MG TABLET PO SCH ×2 (09:06→21:01)
[2019-04-09] MEDS: LIDOCAINE (700MG/PATCH) PATCH. TD SCH (09:06)
[2019-04-09] MEDS: buPROPion XL 300 MG TAB.ER.24H. PO SCH (09:06)
[2019-04-09] MEDS: FUROSEMIDE 40 MG TABLET PO SCH (09:06)
[2019-04-09 15:41] VITALS: BP 106/72
--- NOTE | 2019-04-09 19:05 | NUR ---
Pt up for meals. has been compliant quiet and withdrawn.
--- NOTE | 2019-04-09 20:01 | PDOC ---
Exam Note: Jamal Note: Please also refer to the separate dictated note~for this date of service dictated separately.~Patient seen individually. Discussed the patient with Nursing staff reviewed the chart.~Reviewed interim history and current functioning. Reviewed vital signs,~Labs/ Radiology~and current medications noted below. Continue current treatment with the changes noted in the dictated addendum note Assessment: Vital Signs/I&O: Vital Signs Date Time Temp Pulse Resp B/P (MAP) Pulse Ox O2 Delivery O2 Flow Rate FiO2 04/09/19 15:41 98.8 79 14 106/72 (83) 93 04/08/19 06:05 Room Air I & O 04/08/19 04/08/19 04/09/19 15:00 23:00 07:00 Intake Total 480 ml 600 ml Balance 480 ml 600 ml Current Medications: I have reviewed the current psychotropics carefully including drug interactions. Risk benefit ratio favors no change other than as noted in my dictated progress note. Diagnosis: Problems: (1) Mental status change resolved (2) Anxiety disorder (3) Mild cognitive disorder (4) Major depressive disorder, recurrent episode (5) Impulse control disorder PAIGE CAMARA MD Apr 09, 2019 20:01
[2019-04-09] MEDS: PATCH REMOVAL. MC SCH (21:00)
[2019-04-09] MEDS: DIVALPROEX ER 250 MG TAB.ER.24H. PO SCH (21:01)
[2019-04-09] MEDS: GABAPENTIN 300 MG CAPSULE. PO SCH (21:01)
--- NOTE | 2019-04-09 21:28 | PN ---
DATE: 04/07/2019 PSYCHIATRIC PROGRESS NOTE This late entry 04/07/2019 covers elements not covered in my initial note. SUBJECTIVE: I met with the patient in the evening. Nikky Marte RN, the patient slept 6-3/4 hours previous night. More compliant with medications, ate no breakfast, was flat, withdrawn, ambulating very slowly, took 25 minutes to walk across the hallway with physical therapy staff. REVIEW OF SYSTEMS: Ambulation impaired. No CV, , pulmonary, eye, ENT system symptoms on review. MENTAL STATUS EXAMINATION: The patient is oriented to herself and situation. Speech has some latency, low in rate and rhythm, low in volume. Abstraction fair, computation impaired, language function intact. Mood and affect withdrawn. LABORATORY DATA: Reviewed. IMPRESSION: Unchanged from initial note. PLAN: Increase Wellbutrin-XL from 300 mg a day to 450 mg a day. Continue rest unchanged for now. PAIGE CAMARA MD DR: SAM/david JOB#: [id number] / [id number]
--- NOTE | 2019-04-10 01:23 | NUR ---
Nsg Note: Patient in the day room at time of medication administration and assessments. Patient was calm, compliant and cooperative. Patient was interacting with some of the other patients vaguely but is mostly withdrawn and quiet. Patient went to sleep after taking medications. No other notable behaviors.
[2019-04-10] MEDS: LEVOTHYROXINE 88 MCG TABLET PO SCH (06:00)
[2019-04-10 06:15] VITALS: BP 94/63
[2019-04-10] MEDS: LIDOCAINE (700MG/PATCH) PATCH. TD SCH (08:16)
[2019-04-10] MEDS: NYSTATIN TOPICAL POWDER 15GM BOTTLE. TP SCH ×2 (08:16→20:56)
[2019-04-10] MEDS: PANTOPRAZOLE 40 MG TABLET. PO SCH (08:16)
[2019-04-10] MEDS: POTASSIUM CHLORIDE 20 MEQ TABLET.ER. PO SCH ×2 (08:17→20:55)
[2019-04-10] MEDS: buPROPion XL 150 MG TAB.ER.24H PO SCH (08:17)
[2019-04-10] MEDS: QUEtiapine 25 MG TABLET. PO SCH ×2 (08:17→13:08)
[2019-04-10] MEDS: ACETAMINOPHEN 325 MG TABLET PO SCH ×2 (08:17→20:55)
[2019-04-10] MEDS: buPROPion XL 300 MG TAB.ER.24H. PO SCH (08:17)
[2019-04-10] MEDS: MINERAL OIL/PETROLATUM TOPICAL CREAM 113GM JAR. TP SCH ×2 (08:18→20:56)
[2019-04-10] MEDS: FUROSEMIDE 40 MG TABLET PO SCH (08:18)
--- NOTE | 2019-04-10 10:53 | TX PLAN ---
Interdisciplinary Tx Plan Admission Information Mar 28, 2019 at 20:30 Legal Status (on Admission): Voluntary DPOA/Guardian Name: Pt is a self-sign Contact Other Contact Name: Meliza Monet Other Contact Allergies: Coded Allergies: egg (Verified Allergy, Unknown, 03/28/19) fish derived (Verified Allergy, Unknown, 03/28/19) Diagnoses Reasons for Admission: Depressed, Sig. Change Appetite, Suicidal ideation, Other Problem in Patient's Words: Pt has just been feeling really down lately. Additional Admission Comments: According to the intake, pt is having SI without a a plan. Pt is refusing to eat, wants to , refusing medications, severely depressed, crying spells daily. Problems Active Problems: Depressed feelings Withdrawn Flat affect Need for physical therapy Inactive Problems: Medication compliant Pt Strengths/Limitations Ability for [place]: Fair Cognitive Functioning/Ability: Fair Communication Skills/Ability: Fair Financial Resources: Poor Insight/Judgement: Poor Intellectual Ability: Fair Physical Health: Poor Social Skills: Fair Stability in Family: Poor Stability in School/Work: Poor Discharge Criteria Discharge Criteria: Able meet basic life need, Adequate arrangements @DC, Improved behavior, Improved mood/thought Preliminary Discharge Plan Preliminary DC Plan: Current Living Arrange. Initial D/C Plan Identified Discharge Needs: Pt will plan to return to [facility] Identified Problems/Hx/Goals Objectives/Short-Term Goals Short Term Goals: Decrease Isolation, Dec. Symp. Depression, Improved Social Skills, Medication Stabilization, Monitor Med Effects, No Suicidal/Megan. ideation, Promote Coping Skill Short Term Goals in Patient's: Be less depressed Get my medications corrected Interventions/Frequency Staff Interventions/Frequency&: Psychiatrist to see pt atleast 3x per week. particleboard factory worker to see pt at least 2x per week. Nursing to complete 15 minute checks. Encourage group participation as she is withdrawn to her room often. 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 Education: Pt graduated High School (12th grade) Community Follow-up Primary care Neurology Psychiatry Counseling Treatment Plan Explained Patient/Assistant Corporation Counsel had this treatment plan explained to him/her as indicated by the signature below and has been given the opportunity to ask questions and make suggestions: Date: Patient/Assistant Corporation Counsel Signature: Additional Comments Pt has been doing well this last week. Pt continues to work with PT and OT on gait and strength training. SW will send referral for pt to continue therapy services upon discharge; in which pt will look towards discharging within the next few days. Team Members Signatures Team Members Psychiatrist Date Nursing Date CM/SW Date Activity Therapy Date Other Date Other Date PAZRAMIRO Apr 10, 2019 10:53
--- NOTE | 2019-04-10 14:37 | NUR ---
Nursing note: Pt in dining room for morning meds and assessment. Pt was compliant with taking her meds and was cooperative with her assessment. She denies depression and SI and has no complaints at this time. She is currently in the day room. Will continue to monitor.
[2019-04-10 15:56] VITALS: BP 104/81
--- NOTE | 2019-04-10 18:48 | PN ---
DATE: 04/08/2019 PSYCHIATRIC PROGRESS NOTE This late entry 04/08/2019 covers elements not covered in my initial note. SUBJECTIVE: I met with the patient in the evening. The patient slept 7-1/4 hours previous night. She has been more cooperative, less anxious, still depressed per nursing report. REVIEW OF SYSTEMS: Ambulation impaired with walker. No CV, , pulmonary, eye system symptoms on review. MENTAL STATUS EXAM: Reasonably oriented. Speech is coherent, abstraction fair, computation impaired, language function intact. Mood and affect still withdrawn, less so than before. LABORATORY DATA: Reviewed. IMPRESSION: Unchanged from initial note. PLAN: No change from initial note. MAN All CAMARA MD DR: SAM/david JOB#: [id number] / [id number]
--- NOTE | 2019-04-10 18:50 | PN ---
DATE: 04/09/2019 PSYCHIATRIC PROGRESS NOTE This late entry 04/09/2019 covers elements not covered in my initial note. SUBJECTIVE: I met with the patient in the evening. The patient slept 5-1/2 hours previous night. She remains somewhat withdrawn, less anxious, ambulating a little better, less depressed subjectively. REVIEW OF SYSTEMS: Ambulation impaired with walker. No CV, , pulmonary, eye, ENT system symptoms on review. MENTAL STATUS EXAM: Oriented reasonably. Speech moderate latency, often responses monosyllabic. Abstraction fair, computation impaired, language function intact, attention span short. Mood and affect withdrawn. LABORATORY DATA: Reviewed. IMPRESSION: Unchanged from initial note. PLAN: No change from initial note. MAN All CAMARA MD DR: SAM/david JOB#: [id number] / [id number]
--- NOTE | 2019-04-10 19:54 | PDOC ---
Exam Note: Jamal Note: Please also refer to the separate dictated note~for this date of service dictated separately.~Patient seen individually. Discussed the patient with Nursing staff reviewed the chart.~Reviewed interim history and current functioning. Reviewed vital signs,~Labs/ Radiology~and current medications noted below. Continue current treatment with the changes noted in the dictated addendum note Assessment: Vital Signs/I&O: Vital Signs Date Time Temp Pulse Resp B/P (MAP) Pulse Ox O2 Delivery O2 Flow Rate FiO2 04/10/19 15:56 98.2 82 18 104/81 (89) 97 04/10/19 06:15 Room Air I & O 04/09/19 04/09/19 04/10/19 14:59 22:59 06:59 Intake Total 360 ml 480 ml Output Total 0 ml Balance 360 ml 480 ml Current Medications: I have reviewed the current psychotropics carefully including drug interactions. Risk benefit ratio favors no change other than as noted in my dictated progress note. Diagnosis: Problems: (1) Anxiety disorder (2) Mild cognitive disorder (3) Major depressive disorder, recurrent episode (4) Impulse control disorder PAIGE CAMARA MD Apr 10, 2019 19:54
[2019-04-10] MEDS: DIVALPROEX ER 250 MG TAB.ER.24H. PO SCH (20:55)
[2019-04-10] MEDS: GABAPENTIN 300 MG CAPSULE. PO SCH (20:56)
[2019-04-10] MEDS: PATCH REMOVAL. MC SCH (20:56)
--- NOTE | 2019-04-11 00:39 | NUR ---
Nsg Note: Patient in day room at time of medication administration and assessments. Patient was calm, cooperative and compliant. Patient is flat and hypoverbal. She did mention she is having some pain in knees, tylenol administered. Patient went to sleep shortly after this interaction. No other notable behaviors at this time.
[2019-04-11] MEDS: LEVOTHYROXINE 88 MCG TABLET PO SCH (05:44)
[2019-04-11 06:27] VITALS: BP 98/60
[2019-04-11 06:47] LABS: BASO # 0.1 x10^3/uL (0.0-0.2); BASO % 1 % (0-3); EOS % 0 % (0-3); HEMATOCRIT 37.9 % (36.0-47.0); HEMOGLOBIN 12.3 g/dL (12.0-15.5); LYMPH # 1.8 x10^3/uL (1.0-4.8); LYMPH % 29 % (24-48); MEAN CORPUSCULAR HEMOGLOBIN 28 pg (25-35); MEAN CORPUSCULAR HGB CONC 32 g/dL (31-37); MEAN CORPUSCULAR VOLUME 85 fL (79-100); MONO # 0.5 x10^3/uL (0.0-1.1); MONO % 8 % (0-9); NEUT # 3.7 x10^3uL (1.8-7.7); NEUT % 62 % (31-73); PLATELET COUNT 208 x10^3/uL (140-400); RED BLOOD COUNT 4.44 x10^6/uL (3.50-5.40)
[2019-04-11 06:55] LABS: ALBUMIN 2.8 g/dL (3.4-5.0); ALBUMIN/GLOBULIN RATIO 0.8 (1.0-1.7); CALCIUM 8.7 mg/dL (8.5-10.1); CREATININE 1.8 mg/dL (0.6-1.0); GFR 28.8; POTASSIUM 3.8 mmol/L (3.5-5.1); TOTAL BILIRUBIN 0.4 mg/dL (0.2-1.0); TOTAL PROTEIN 6.4 g/dL (6.4-8.2)
[2019-04-11] MEDS: PANTOPRAZOLE 40 MG TABLET. PO SCH (07:53)
[2019-04-11] MEDS: ACETAMINOPHEN 325 MG TABLET PO SCH ×2 (07:54→20:02)
[2019-04-11] MEDS: FUROSEMIDE 40 MG TABLET PO SCH (07:54)
[2019-04-11] MEDS: POTASSIUM CHLORIDE 20 MEQ TABLET.ER. PO SCH ×2 (07:54→20:02)
[2019-04-11] MEDS: buPROPion XL 150 MG TAB.ER.24H PO SCH (07:54)
[2019-04-11] MEDS: QUEtiapine 25 MG TABLET. PO SCH ×2 (07:55→13:57)
[2019-04-11] MEDS: buPROPion XL 300 MG TAB.ER.24H. PO SCH (07:55)
[2019-04-11] MEDS: LIDOCAINE (700MG/PATCH) PATCH. TD SCH (07:56)
[2019-04-11] MEDS: MINERAL OIL/PETROLATUM TOPICAL CREAM 113GM JAR. TP SCH ×2 (07:56→20:03)
[2019-04-11] MEDS: NYSTATIN TOPICAL POWDER 15GM BOTTLE. TP SCH ×2 (07:56→20:03)
--- NOTE | 2019-04-11 11:17 | NUR ---
Nursing note: Pt was in dining room for morning meds and assessment. Pt was compliant with taking her meds and was interactive with her assessment. She c/o pain in her knees, lidocaine patches were administered to both knees. Pt has been in the day room for most of the morning, but has been withdrawn to herself. Will continue to monitor.
--- NOTE | 2019-04-11 12:16 | NUR ---
WEEKLY ACTIVITY THERAPY NOTE- Based on four days of programming Date of Admission: 03/29/2019 Date of AT Assessment: 04/01/2019 Goal aimed: to increase socialization and engagement Initial goal: Pt. will participate in at least three Activity Therapy groups per week. Goal changed 04/06/19: Pt. will participate in at least one Activity Therapy group per day. Weekly progress towards goal: achieved Group participation level: full Weekly highlights: fully participated in all groups offered this week Behaviors observed: more alert this week, smiling often, generally keeps to self but around peers in day room Plan: no change to goal Beneficial adaptations: positive response to trivia
--- NOTE | 2019-04-11 15:14 | NUR ---
[facility] Social Work Discharge Planning Form Patient Name YASMIN MOSQUERA Admit Date: 03/28/19 DISCHARGE PLAN Discharge Destination: Back to [facility] Care Assessment: N/A Level II Assessment: N/A Transportation: Special Instructions/Notes: Please fax all discharge orders and the medication list to the facility fax number listed below. DISCHARGE TO FACILITY Facility: [facility] Address: [address] [place] [address] Contact Name: DanielaDEVON: Contact Name: Please ask to speak to the nurse receiving pt upon admission: PCP: Rivas Dickens
[2019-04-11] MEDS ORDERED: CHOL500050 PO (15:24)
[2019-04-11] MEDS ORDERED: LIDO700A21 TP (15:25)
[2019-04-11] MEDS ORDERED: MAG-95 PO (15:26)
[2019-04-11] MEDS ORDERED: MAGN2400 PO (15:27)
[2019-04-11] MEDS ORDERED: METH28OI2 TP (15:28)
[2019-04-11] MEDS ORDERED: QUET25TA5 PO (15:30)
[2019-04-11] MEDS ORDERED: BUPR300T4 PO (15:31)
[2019-04-11] MEDS ORDERED: FLUV50TA2 PO (15:32)
[2019-04-11 16:11] VITALS: BP 150/77
--- NOTE | 2019-04-11 19:12 | DS ---
DATE OF DISCHARGE: 04/11/2019 DISCHARGE SUMMARY/PSYCHIATRIC PROGRESS NOTE This note covers the elements not covered in my initial note. REASON FOR ADMISSION: Please refer to the admission history for details. Briefly, the patient is a 58-year-old female referred to us from [facility] assisted living facility by her primary care physician on account of worsening symptoms of depression, suicidal ideation without a plan. She was refusing to eat, refusing medications, wanting to , severely depressed with daily crying spells. She had failed outpatient psychiatric interventions, referred for inpatient psychiatric stabilization due to risk for harm to herself. SIGNIFICANT FINDINGS AND CLINICAL COURSE: Following admission, the patient was seen daily individually by myself from a psychiatric standpoint, medical followup with Dr. Moore. The patient was extremely depressed, withdrawn with persistent frequent non-relenting crying spells. Adjustments were made in her psychotropic. She seemed to respond to a combination of Seroquel 12.5 mg b.i.d., Klonopin, which was being tapered. Gabapentin 300 mg at bedtime, Depakote ER 750 mg at bedtime with a level therapeutic at 88, Luvox 50 mg a day, Wellbutrin-XL 450 mg a day. Prior to discharge 04/11/2019, ambulation impaired with walker, though generally she was walking much better than a few days earlier when she put herself in the wheelchair. REVIEW OF SYSTEMS: No CV, , pulmonary, eye system symptoms on review. MENTAL STATUS EXAM: Reasonably oriented to herself and situation. Speech has some latency, coherent, more forthcoming, abstraction fair, computation impaired, language function intact. Mood and affect improved. No suicidal ideation. DISCHARGE CONDITION AT DISCHARGE: Improved. FINAL DIAGNOSES: Major depressive disorder, recurrent with psychotic features, in partial remission; anxiety disorder, unspecified; mild cognitive impairment; obsessive-compulsive disorder. Rest unchanged from admission. DISCHARGE MEDICATIONS: Please refer to the MRAD. DISCHARGE INSTRUCTIONS: Outpatient psychiatric and medical followup at the long-term. Time for discharge day management greater than 30 minutes. MAN All CAMARA MD DR: SAM/david JOB#: [id number] / [id number]
--- NOTE | 2019-04-11 19:57 | PDOC ---
Exam Note: Jamal Note: Please also refer to the separate dictated note~for this date of service dictated separately.~Patient seen individually. Discussed the patient with Nursing staff reviewed the chart.~Reviewed interim history and current functioning. Reviewed vital signs,~Labs/ Radiology~and current medications noted below. Continue current treatment with the changes noted in the dictated addendum note Assessment: Vital Signs/I&O: Vital Signs Date Time Temp Pulse Resp B/P (MAP) Pulse Ox O2 Delivery O2 Flow Rate FiO2 04/11/19 16:11 97.9 89 20 150/77 (101) 98 Room Air I & O 04/10/19 04/10/19 04/11/19 15:00 23:00 07:00 Intake Total 720 ml 240 ml 120 ml Balance 720 ml 240 ml 120 ml Labs: Laboratory Tests Test 04/11/19 06:35 White Blood Count 6.0 x10^3/uL (4.0-11.0) Red Blood Count 4.44 x10^6/uL (3.50-5.40) Hemoglobin 12.3 g/dL (12.0-15.5) Hematocrit 37.9 % (36.0-47.0) Mean Corpuscular Volume 85 fL (79-100) Mean Corpuscular Hemoglobin 28 pg (25-35) Mean Corpuscular Hemoglobin Concent 32 g/dL (31-37) Red Cell Distribution Width 16.0 % (11.5-14.5) H Platelet Count 208 x10^3/uL (140-400) Neutrophils (%) (Auto) 62 % (31-73) Lymphocytes (%) (Auto) 29 % (24-48) Monocytes (%) (Auto) 8 % (0-9) Eosinophils (%) (Auto) 0 % (0-3) Basophils (%) (Auto) 1 % (0-3) Neutrophils # (Auto) 3.7 x10^3uL (1.8-7.7) Lymphocytes # (Auto) 1.8 x10^3/uL (1.0-4.8) Monocytes # (Auto) 0.5 x10^3/uL (0.0-1.1) Eosinophils # (Auto) 0.0 x10^3/uL (0.0-0.7) Basophils # (Auto) 0.1 x10^3/uL (0.0-0.2) Sodium Level 145 mmol/L (136-145) Potassium Level 3.8 mmol/L (3.5-5.1) Chloride Level 107 mmol/L (98-107) Carbon Dioxide Level 29 mmol/L (21-32) Anion Gap 9 (6-14) Blood Urea Nitrogen 34 mg/dL (7-20) H Creatinine 1.8 mg/dL (0.6-1.0) H Estimated GFR (Cockcroft-Gault) 28.8 BUN/Creatinine Ratio 19 (6-20) Glucose Level 79 mg/dL (70-99) Calcium Level 8.7 mg/dL (8.5-10.1) Total Bilirubin 0.4 mg/dL (0.2-1.0) Aspartate Amino Transferase (AST) 11 U/L (15-37) L Alanine Aminotransferase (ALT) 11 U/L (14-59) L Alkaline Phosphatase 69 U/L (46-116) Total Protein 6.4 g/dL (6.4-8.2) Albumin 2.8 g/dL (3.4-5.0) L Albumin/Globulin Ratio 0.8 (1.0-1.7) L Current Medications: I have reviewed the current psychotropics carefully including drug interactions. Risk benefit ratio favors no change other than as noted in my dictated progress note. Diagnosis: Problems: (1) Anxiety disorder (2) Mild cognitive disorder (3) Major depressive disorder, recurrent episode (4) Impulse control disorder PAIEG CAMARA MD Apr 11, 2019 19:57
[2019-04-11] MEDS: GABAPENTIN 300 MG CAPSULE. PO SCH (20:01)
[2019-04-11] MEDS: DIVALPROEX ER 250 MG TAB.ER.24H. PO SCH (20:02)
[2019-04-11] MEDS: PATCH REMOVAL. MC SCH (20:02)
--- NOTE | 2019-04-11 23:33 | NUR ---
Nsg Note: Patient was in day room at time of medication administration and assessments. Patient was calm, compliant, cooperative, flat and denies SI. Patient went off to bed shortly after this interaction. No other notable behaviors at this time.
--- NOTE | 2019-04-11 23:50 | PN ---
DATE: 04/10/2019 PSYCHIATRIC PROGRESS NOTE This late entry 04/10/2019 covers the elements not covered in my initial note. SUBJECTIVE: I met with the patient in the evening. Per report from JUAN ALBERTO Alexander, the patient slept 6-3/4 hours previous night. She has been flat, withdrawn, compliant with medications, a little more interactive with peers. REVIEW OF SYSTEMS: Ambulation impaired with walker. No CV, , pulmonary, eye system symptoms on review. MENTAL STATUS EXAM: Oriented to herself and situation. Speech has some latency, coherent. Abstraction fair, computation impaired, language function intact. Mood and affect still depressed, withdrawn, but improved. No active suicidal ideation. LABORATORY DATA: Reviewed. IMPRESSION: Major depressive disorder, recurrent with psychotic features, in partial remission. Rest unchanged. PLAN: Continue psychotropics from initial note. Seroquel and Klonopin is being tapered, Neurontin, Depakote, Luvox due to her OCD symptoms, Wellbutrin-XL 450 mg a day. Possible transition back to [facility] on 04/11/2019. MAN All CAMARA MD DR: SAM/david JOB#: [id number] / [id number]
[2019-04-12] MEDS: LEVOTHYROXINE 88 MCG TABLET PO SCH (05:40)
[2019-04-12 06:37] VITALS: BP 108/61
[2019-04-12] MEDS: POTASSIUM CHLORIDE 20 MEQ TABLET.ER. PO SCH (08:46)
[2019-04-12] MEDS: QUEtiapine 25 MG TABLET. PO SCH ×2 (08:46→12:21)
[2019-04-12] MEDS: FUROSEMIDE 40 MG TABLET PO SCH (08:46)
[2019-04-12] MEDS: ACETAMINOPHEN 325 MG TABLET PO SCH (08:46)
[2019-04-12] MEDS: PANTOPRAZOLE 40 MG TABLET. PO SCH (08:46)
[2019-04-12] MEDS: buPROPion XL 300 MG TAB.ER.24H. PO SCH (08:46)
[2019-04-12] MEDS: buPROPion XL 150 MG TAB.ER.24H PO SCH (08:47)
[2019-04-12] MEDS: LIDOCAINE (700MG/PATCH) PATCH. TD SCH (08:48)
[2019-04-12] MEDS: NYSTATIN TOPICAL POWDER 15GM BOTTLE. TP SCH (08:48)
[2019-04-12] MEDS: MINERAL OIL/PETROLATUM TOPICAL CREAM 113GM JAR. TP SCH (08:48)
--- NOTE | 2019-04-12 13:48 | NUR ---
Transition Record was faxed to follow-up provider with the following elements: Reason for admission, procedures, tests, principal diagnosis, pending studies, patient instructions, 07/12 contact information for unit, phone number to obtain pending test results, plan for follow-up care, physician follow-up, advanced directive information, and medication list with dose, duration and instructions. This information was included in the following documents:Take medications as prescribed, return to [facility] History and physical, lab results, study results, progress notes, social work planning form, DC instruction form, patient visit summary, and medication reconciliation form. Date & time record faxed:04/11/19 [id number] Record faxed to:[facility] Record discussed with/ report given to:Antonette
--- NOTE | 2019-04-12 17:36 | DS ---
DATE OF DISCHARGE: 04/12/2019 PSYCHIATRIC DISCHARGE NOTE This note covers the elements not covered in my initial note. REASON FOR ADMISSION: Please refer to the admission history for details. Briefly, the patient is a 58-year-old female, referred to us from [facility] on account of worsening symptoms of depression with suicidal ideation without a plan. She was refusing to eat, refusing medications, wanting to , severely depressed with daily crying spells. She had failed outpatient psychiatric interventions. Behaviors were deemed dangerous, at risk at the facility, referred for inpatient psychiatric stabilization. SIGNIFICANT FINDINGS AND CLINICAL COURSE: Following admission, the patient was seen daily individually by myself from a psychiatric standpoint, medical followup with Dr. Moore. The patient was extremely depressed, hopeless, helpless, worthless, crying, appeared very confused, paranoid. Adjustments were made in her psychotropic. She seemed to respond to a combination of Seroquel 12.5 mg [id number], Klonopin was tapered and stopped but p.r.n. 0.5 mg b.i.d. was continued. She was also on gabapentin 300 mg at bedtime, Depakote ER 750 mg at bedtime with a level therapeutic at 88, Luvox 50 mg daily, Wellbutrin-XL 450 mg a day. She is quite obsessive, anxious, seemed to respond to the combination of Luvox and Wellbutrin. She also on careful review of her had a history of mood swings with bipolar disorder, unspecified as an additional diagnosis with justified the usage of Depakote. REVIEW OF SYSTEMS: Prior to discharge on 04/12/2019, ambulation impaired with walker. No CV, , pulmonary, eye system symptoms on review. MENTAL STATUS EXAM: Oriented to herself and situation. Speech has some latency, coherent. Abstraction fair. Computation impaired. Language function intact. Mood and affect improved. No suicidal ideation at discharge. FINAL DIAGNOSES: Major depressive disorder, recurrent with psychotic features; bipolar disorder, unspecified; anxiety disorder, unspecified; mild cognitive impairment. Rest unchanged from admission. DISCHARGE MEDICATIONS: Please refer to the MRAD. DISCHARGE INSTRUCTIONS: Outpatient psychiatric and medical followup at the halfway. Time for discharge day management greater than 30 minutes. MAN All CAMARA MD DR: SAM/david JOB#: [id number] / [id number]
--- NOTE | 2019-04-12 19:46 | PDOC ---
Exam Note: Jamal Note: Please also refer to the separate dictated note~for this date of service dictated separately.~Patient seen individually. Discussed the patient with Nursing staff reviewed the chart.~Reviewed interim history and current functioning. Reviewed vital signs,~Labs/ Radiology~and current medications noted below. Continue current treatment with the changes noted in the dictated addendum note Assessment: Vital Signs/I&O: Vital Signs Date Time Temp Pulse Resp B/P (MAP) Pulse Ox O2 Delivery O2 Flow Rate FiO2 04/12/19 06:37 97.3 61 22 108/61 (77) 94 04/11/19 16:11 Room Air I & O 04/11/19 04/11/19 04/12/19 15:00 23:00 07:00 Intake Total 960 ml 600 ml Balance 960 ml 600 ml Current Medications: I have reviewed the current psychotropics carefully including drug interactions. Risk benefit ratio favors no change other than as noted in my dictated progress note. Diagnosis: Problems: (1) Anxiety disorder (2) Mild cognitive disorder (3) Major depressive disorder, recurrent episode (4) Impulse control disorder PAIGE CAMARA MD Apr 12, 2019 19:46
--- NOTE | 2019-04-12 21:10 | PN ---
DATE: 04/11/2019 PSYCHIATRIC PROGRESS NOTE This late entry 04/11/2019 covers elements not covered in my initial note. SUBJECTIVE: I met with the patient in the evening and staffed at a treatment team meeting with the entire team earlier in the day. The patient remains withdrawn, but less depressed, more cooperative, interactive. REVIEW OF SYSTEMS: Ambulation impaired. No CV, , pulmonary, eye system symptoms on review. MENTAL STATUS EXAM: Oriented to herself and situation. Speech has some latency, coherent. Abstraction fair, computation impaired, language function intact. Mood and affect withdrawn. LABORATORY DATA: Reviewed. IMPRESSION: Unchanged from initial note. PLAN: No change from initial note and transition to longterm when it can be scheduled by social service staff. PAIGE CAMARA MD DR: SAM/david JOB#: [id number] / [id number]
== END 2019-04-12 14:15 | DRG 885 ==
LOC: EDBD 20:11 → ER 20:11 → GEROPSY 20:30
PROVIDERS: ADMIT Psychiatry & Neurology Psychiatry; ATTEND Psychiatry & Neurology Psychiatry
DX: F33.3 Major depressive disorder, recurrent, severe with psychotic symptoms (principal); N39.0 Urinary tract infection, site not specified; R45.851 Suicidal ideations; Z68.43 Body mass index [BMI] 50.0-59.9, adult; F41.9 Anxiety disorder, unspecified; F60.3 Borderline personality disorder; N18.3 Chronic kidney disease, stage 3 (moderate); E03.4 Atrophy of thyroid (acquired); E66.01 Morbid (severe) obesity due to excess calories; F09 Unspecified mental disorder due to known physiological condition; F42.9 Obsessive-compulsive disorder, unspecified; F63.9 Impulse disorder, unspecified; G31.84 Mild cognitive impairment of uncertain or unknown etiology; E66.9 Obesity, unspecified; I12.9 Hypertensive chronic kidney disease with stage 1 through stage 4 chronic kidney disease, or unspecified chronic kidney disease; I89.0 Lymphedema, not elsewhere classified; K21.9 Gastro-esophageal reflux disease without esophagitis; K22.70 Barrett's esophagus without dysplasia; M19.90 Unspecified osteoarthritis, unspecified site; M48.00 Spinal stenosis, site unspecified; Z79.899 Other long term (current) drug therapy; Z91.012 Allergy to eggs; Z91.013 Allergy to seafood; M25.562 Pain in left knee; M25.561 Pain in right knee
CPT/HCPCS: 36415; 70450; 71045; 72125; 72170; 73564; 80048; 80053; 80061; 80076; 80164; 80307; 81001; 82306; 82550; 82607; 83036; 83540; 83550; 83690; 83735; 83880; 84436; 84443; 84480; 84484; 85025; 85379; 85610; 85651; 85730; 86592; 87086; 93005; 93970; 96372; J1650; 97110; 97116; 97530; 97535; 99285-25